=== PATIENT | male | born 1965 | race Caucasian/White ===

== ENCOUNTER 2023-06-02 09:06 | Outpatient (REF) | payer BC, SELFPAY | END 2023-06-02 09:07 | disposition home or self-care (01) | LOC: HO.BBR 09:06 | PROVIDERS: PCP Internal Medicine; Visit Provider Internal Medicine | DX: D75.1 Secondary polycythemia (principal) | CPT/HCPCS: 85014; 85018; 99195 ==

== ENCOUNTER 2023-06-30 08:58 | Outpatient (REF) | payer BC, SELFPAY | END 2023-06-30 08:59 | disposition home or self-care (01) | LOC: HO.BBR 08:58 | PROVIDERS: PCP Internal Medicine; Visit Provider Internal Medicine | DX: D75.1 Secondary polycythemia (principal) | CPT/HCPCS: 85018; 99195 ==

== ENCOUNTER 2023-09-07 14:01 | Outpatient (REF) | payer BC, SELFPAY | END 2023-09-07 14:02 | disposition home or self-care (01) | LOC: HO.BBR 14:01 | PROVIDERS: PCP Internal Medicine; Visit Provider Internal Medicine | DX: D75.1 Secondary polycythemia (principal) | CPT/HCPCS: 85018; 99195 ==

== ENCOUNTER 2023-10-05 08:01 | Outpatient (REF) | payer BC, SELFPAY | END 2023-10-05 08:02 | disposition home or self-care (01) | LOC: HO.BBR 08:01 | PROVIDERS: PCP Internal Medicine; Visit Provider Internal Medicine | DX: D75.1 Secondary polycythemia (principal) | CPT/HCPCS: 85018; 99195 ==

== ENCOUNTER 2023-11-09 08:57 | Outpatient (REF) | payer BC, SELFPAY | END 2023-11-09 08:58 | disposition home or self-care (01) | LOC: HO.BBR 08:57 | PROVIDERS: Visit Provider Internal Medicine | DX: D75.1 Secondary polycythemia (principal) | CPT/HCPCS: 85018; 99195 ==

== ENCOUNTER 2023-12-08 08:08 | Outpatient (REF) | payer BC, SELFPAY | END 2023-12-08 08:09 | disposition home or self-care (01) | LOC: HO.BBR 08:08 | PROVIDERS: PCP Internal Medicine; Visit Provider Internal Medicine | DX: D75.1 Secondary polycythemia (principal) | CPT/HCPCS: 85014; 85018; 99195 ==

== ENCOUNTER 2024-01-04 08:04 | Outpatient (REF) | payer BC, SELFPAY | END 2024-01-04 08:05 | disposition home or self-care (01) | LOC: HO.BBR 08:04 | PROVIDERS: PCP Internal Medicine; Visit Provider Internal Medicine | DX: D75.1 Secondary polycythemia (principal) | CPT/HCPCS: 85018 ==

== ENCOUNTER 2024-02-07 08:04 | Outpatient (REF) | payer BC, SELFPAY | END 2024-02-07 08:05 | disposition home or self-care (01) | LOC: HO.BBR 08:04 | PROVIDERS: PCP Internal Medicine; Visit Provider Internal Medicine | DX: D75.1 Secondary polycythemia (principal) | CPT/HCPCS: 85018 ==

== ENCOUNTER 2024-03-05 07:55 | Outpatient (REF) | payer BC, SELFPAY | END 2024-03-05 07:56 | disposition home or self-care (01) | LOC: HO.BBR 07:55 | PROVIDERS: PCP Internal Medicine; Visit Provider Internal Medicine | DX: D75.1 Secondary polycythemia (principal) | CPT/HCPCS: 85014; 85018; 99195 ==

== ENCOUNTER 2024-04-16 08:40 | Outpatient (REF) | payer BC, SELFPAY | END 2024-04-16 08:41 | disposition home or self-care (01) | LOC: HO.BBR 08:40 | PROVIDERS: PCP Internal Medicine; Visit Provider Internal Medicine | DX: D75.1 Secondary polycythemia (principal) | CPT/HCPCS: 85018; 99195 ==

== ENCOUNTER 2024-05-22 07:59 | Outpatient (REF) | payer BC, SELFPAY | END 2024-05-22 08:00 | disposition home or self-care (01) | LOC: HO.BBR 07:59 | PROVIDERS: PCP Internal Medicine; Visit Provider Internal Medicine | DX: D75.1 Secondary polycythemia (principal) | CPT/HCPCS: 85014; 85018; 99195 ==

== ENCOUNTER 2024-08-13 08:13 | Outpatient (REF) | payer BC, SELFPAY ==
--- OUTSIDE RECORDS SUMMARY | 2024-08-13 12:36 | XMS_ITS | Clinical Summary ---
Author Organization [email or web address] Address [address] [place] [address] Care Team Providers Care Business Systems Administrator Name Role Phone Natanael Mcfarland MD Primary Care Provider [phone] Allergies Active Allergy Reactions Criticality Noted Date Comments Other 09/08/2017 Medications Medication Sig Dispensed Refills Start Date End Date Status allopurinoL (ZYLOPRIM) 300 mg tablet Take 1 tablet (300 mg total) by mouth daily. Activ e amLODIPine-benazep ril (LOTREL) 5-40 mg per capsule TAKE 1 CAPSULE BY MOUTH EVERY DAY 04/26/2017 Active apixaban (ELIQUIS) 5 mg tablet Take by mouth every 12 (twelve) hours. Active aspirin 81 mg EC tablet Take 1 tablet (81 mg total) by mouth daily. Activ e atorvastatin (LIPITOR) 40 mg tablet Take 1 tablet (40 mg total) by mouth daily. Activ e buPROPion XL (WELLBUTRIN XL) 300 mg 24 hr tablet Take 1 tablet (300 mg total) by mouth daily. 12/04/2017 Activ e carvediloL (COREG) 25 mg tablet Take 1 tablet (25 mg total) by mouth 2 (two) times a day with meals. Active cyanocobalamin, vitamin B-12, 1,000 mcg capsule Take 1 capsule by mouth. Active furosemide (LASIX) 20 mg tablet 06/18/2017 Active LORazepam (ATIVAN) 0.5 mg tablet Take 1 tablet (0.5 mg total) by mouth every 8 (eight) hours as needed. Active metFORMIN (GLUCOPHAGE) 500 mg tablet Take 2 tablets (1,000 mg total) by mouth daily. Active semaglutide (Ozempic) 1 mg/dose (2 mg/1.5 mL) injection pen Semaglutide (OZEMPIC, 1 MG/DOSE, SC): Inject under the skin. - Subcutaneous Active tamsulosin (FLOMAX) 0.4 mg 24 hr capsule Take 1 capsule (0.4 mg total) by mouth daily. Activ e testosterone cypionate (DEPO-TESTOTERONE) 200 mg/mL injection INJECT 1.2ML INTRAMUSCULARLY EVERY 2 WEEKS DIRECTED 02/10/2017 Active Active Problems Problem Noted Date Diagnosed Date Depression 09/12/2017 Diabetes mellitus type 2, uncomplicated 09/12/19 GERD (gastroesophageal reflux disease) 8 Gout 09/12/2017 Hyperlipidemia 09/12/2017 Hypertension 09/12/2017 Nephrolithiasis 09/12/2017 DIANE (obstructive sleep apnea) 09/08/2017 Overview (09/08/2023): Overview: CPAP Polycythemia, 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 Encounters Date Type Department Care Team Description 06/27/2024 Telephone [facility] Hematology Oncology [address] [place] [address] Oswaldo Vargas MD from Last 3 Months Immunizations Name Administration Dates Next Due Pfizer SARS-CoV-2 COVID-19, mRNA, LNP-S, preservative free 09/27/2020,09/06/2020 Surgical History Surgery Date Site/Laterality Comments OTHER SURGICAL HISTORY 05/2009 Right PROCEDURE: ND LAPAROSCOPY SURGICAL ORCHIECTOMY; COMMENT: testicular cancer BACK SURGERY 04/2001 PROCEDURE: HISTORICAL BACK SURGERY; COMMENT: C4-C5 discectomy & fusion LITHOTRIPSY 04/2000 PROCEDURE: HISTORICAL LITHOTRIPSY; COMMENT: kidney stones Medical History Medical History Date Comments Morbid obesity with BMI of 4 5.0-49.9, adult (CMS/HCC) 09/08/2017 DX:Morbid obesity with BMI o f 45.0-49.9, adult (HCC) History of testicular cancer 09/12/2017 DX: History of testicular cancer Hypertension 09/12/2017 DX:Hypertension Hyperlipidemia 09/12/2017 DX:Hyperlipidemi a GERD (gastroesophageal reflux disease) 09/12/2017 DX:GERD (gastroesophageal reflux disease) Gout 09/12/2017 DX:Gout Diabetes mellitus type 2, un complicated (CMS/HCC) 09/12/2017 DX:Diabetes mellitus type 2, uncomplicated (HCC) Depression 09/12/2017 DX:Depression Nephrolithiasis 09/12/2017 DX:Nephrolithias is Family History Medical History Relation Name Comments COPD Mother CVA Relation Name Status Comments Mother Social History Tobacco Use Types Packs/Day Years Used Date Smoking Tobacco: Never Smokeless Tobacco: Never Alcohol Use Standard Drinks/Week Comments Yes 0 (1 standard drink = 0.6 oz pur e alcohol) Sex and Gender Information Value Date Recorded Sex Assigned at Not on file Gender Identity Not on file Sexual Orientation Straight 08/20/2022 6: 55 PM EST Obstetrics History Last Filed Vital Signs Vital Sign Reading Time Taken Comments Blood Pressure 118/74 02/28/2024 9:24 AM EDT Pulse 75 01/16/2024 7:49 AM EDT Temperature - - Respiratory Rate - - Oxygen Saturation - - Inhaled Oxygen Concentration - - Weight 121 kg (266 lb) 02/28/2024 9:24 AM EDT Height 182.9 cm (6') 02/28/2024 9:24 AM EDT Body Mass Index 36.08 02/28/2024 9:24 AM EDT Plan of Treatment Upcoming Encounters Date Type Department Care Team (Late st Contact Info) Description 11/27/2024 9:00 AM EDT Office Visit [facility] Hematology Oncology [address] [place] [address] Oswaldo Vargas MD [address] [place] [id number] Health Maintenance Due Date Last Done Comments Diabetes: Annual GFR (Glomerular Filtration Rate) 1965 Pneumococcal Vaccine: Pediatrics (0 to 5 Years) and At-Risk Patients (6 to 64 Years) (1 of 2 - PCV) 10/31/1971 Diabetes: Annual Foot Exam 10/31/1975 Diabetes: Annual Retina Eye Exam 10/31/1975 DTaP,Tdap,and Td Vaccines (1 - Tdap) 1984 Hepatitis B Vaccines (1 of 3 - 19+ 3-dose series) 1984 Zoster Vaccines (1 of 2) 10/31/2015 Cholesterol Screening (Lipid Panel) 06/20/2022 Colorectal Cancer Screening: Colonoscopy 06/20/2022 Depression Screening 06/20/2022 HIV Screening 06/20/2022 Hepatitis C Screening 06/20/2022 Social Influencers of Health Screening 06/20/2022 Diabetes: Annual Urine Albumin-Creatinine Ratio (uACR) 06/29/2022 Diabetes: Blood Sugar Contro l Test (HGBA1C) 06/29/2022 Hypertension/CHF/CAD Annual BMP Blood Test 06/29/2022 COVID-19 Vaccine (3 - 2023-2 5 season) 2024 09/27/2020, 09/06/2020 Influenza Vaccine (#1) 2024 HIB Vaccines Aged Out No longer eligi ble based on patient's age to complete this topic HPV Vaccines Aged Out No longer eligi ble based on patient's age to complete this topic Hepatitis A Vaccines Aged Out No long er eligible based on patient's age to complete this topic IPV Vaccines Aged Out No longer eligi ble based on patient's age to complete this topic MMR Vaccines Aged Out No longer eligi ble based on patient's age to complete this topic Meningococcal ACWY Vaccine Aged Out N o longer eligible based on patient's age to complete this topic RSV Immunization Patients Under 20 months Aged Out No longer eligible b ased on patient's age to complete this topic Varicella Vaccines Aged Out No longer eligible based on patient's age to complete this topic Care Teams Business Systems Administrator Relationship Specialty Start Date End Date Natanael Mcfarland MD PCP - General Internal Medicine 09/08/17
--- OUTSIDE RECORDS SUMMARY | 2024-08-13 12:36 | XMS_ITS | Referral Summary ---
Author Organization [facility] Address [address] [place] [address] Care Team Providers Care Apron Operator Name Role Phone Natanael Mcfarland Primary Care Provider [phone] Medications Hospital, Clinic, or Other Facility Administered Medication Ordered Dose Route Frequency Start Date End Date Status acetaminophen (TYLENOL) tablet 650 mg 650 mg oral Once 04/02/2021 Active diphenhydrAMINE (BENADRYL) capsule 25 mg 25 mg oral Once 04/02/2021 Active Social History Tobacco Use Types Packs/Day Years Used Date Smoking Tobacco: Never Assessed Sex and Gender Information Value Date Recorded Sex Assigned at Not on file Legal Sex Male 8:41 AM EDT Gender Identity Not on file Sexual Orientation Not on file Last Filed Vital Signs Vital Sign Reading Time Taken Comments Blood Pressure 117/65 04/02/2021 9:51 AM EDT Pulse 85 04/02/2021 9:51 AM EDT Temperature - - Respiratory Rate 17 04/02/2021 9:51 AM EDT Oxygen Saturation 95% 04/02/2021 9:51 AM EDT Inhaled Oxygen Concentration - - Weight 149.7 kg (330 lb) 04/02/2021 9:08 AM EDT Height - - Body Mass Index - - Plan of Treatment Not on [place] [id number] BCBS OUT OF STATE HMO Care Teams Apron Operator Relationship Specialty Start Date End Date Natanael Mcfarland PCP - General Internal Medicine 03/31/21
--- OUTSIDE RECORDS SUMMARY | 2024-08-13 12:36 | XMS_ITS | Clinical Summary ---
Author Organization [facility] Address [address] [place] [address] Care Team Providers Care Supervisor Remelt Name Role Phone Natanael Mcfarland Primary Care Provider [phone] Medications Hospital, Clinic, or Other Facility Administered [...] Mass Index - - Plan of Treatment Health Maintenance Due Date Last Done Comments Cologuard 1965 Colon Cancer Screening 1965 Colonoscopy 1965 FOBT / Fit Test 1965 HIV Screening 1965 Sigmoidoscopy 1965 Hepatitis B Vaccines (1 of 3 - 19+ 3-dose series) 1984 DTaP,Tdap,and Td Vaccines (1 - Tdap) 10/31/1987 Zoster Vaccines (1 of 2) 10/31/2015 COVID-19 Vaccine (3 - 2023-2 5 season) 2024 09/27/2020, 09/06/2020 Influenza Vaccine (#1) 2024 Alcohol/Substance Use Screening 07/18/2024 RSV Vaccine (60+ years old a nd patients) (1 - 1-dose 75+ series) 2040 Pneumococcal Vaccine: Pediatric (0-5 Years) and At-Risk Patients (6-64 Years) Aged Out No longer eligible based on patient's age to complete this topic Insurance [facility] OUT OF STATE HMO Care Teams Supervisor Remelt Relationship Specialty Start Date End Date Natanael Mcfarland PCP - General Internal Medicine 03/31/21
--- OUTSIDE RECORDS SUMMARY | 2024-08-13 12:36 | XMS_ITS | Clinical Summary ---
Author Organization [facility] Address [address] [place] [address] Care Team Providers Care Title Department Manager Name Role Phone Natanael Mcfarland MD Primary Care Provider [phone] Allergies Active Allergy Reactions Criticality Noted Date Comments Other 09/08/2017 Medications Medication Sig Dispensed Refills Start Date End Date Status carvedilol (COREG) 25 MG tablet Take 1 tablet (25 mg total) by mouth 2 (two) times a day with meals. 0 Active aspirin 81 MG tablet Take 1 tablet (81 mg total) by mouth daily. 0 Activ e allopurinol (ZYLOPRIM) 300 MG tablet Take 1 tablet (300 mg total) by mouth daily. 0 Activ e testosterone cypionate (DEPO-TESTOSTERONE CYPIONATE) injection 200 mg/mL INJECT 1.2ML INTRAMUSCULARLY EVERY 2 WEEKS DIRECTED 0 02/10/2017 Active amlodipine-benazep ril (LOTREL) 5-40 MG per capsule TAKE 1 CAPSULE BY MOUTH EVERY DAY 11 04/26/2017 Active furosemide (LASIX) 20 MG tablet 0 06/18/2017 Active metFORMIN (GLUCOPHAGE) tablet 500 mg Take 2 tablets (1,000 mg total) by mouth daily. 0 Active Cyanocobalamin (B-12) 1000 MCG CAPS Take 1 capsule by mouth. 0 Active buPROPion (WELLBUTRIN XL) 300 MG 24 hr tablet Take 1 tablet (300 mg total) by mouth daily. 5 12/04/2017 Activ e LORazepam (ATIVAN) 0.5 MG tablet Take 1 tablet (0.5 mg total) by mouth every 8 (eight) hours as needed. 0 Active atorvastatin (LIPITOR) tablet 40 mg Take 1 tablet (40 mg total) by mouth daily. 0 Activ e apixaban (ELIQUIS) 5 MG TABS tablet Take by mouth every 12 (twelve) hours. 0 Active tamsulosin (FLOMAX) 0.4 MG CAPS Take 1 capsule (0.4 mg total) by mouth daily. 0 Activ e Semaglutide (OZEMPIC, 1 MG/DOSE, SC) Inject under the skin. 0 Active meloxicam (MOBIC) 15 MG tablet Take 1 tablet (15 mg total) by mouth daily. 0 Activ e Active Problems Problem Noted Date Diagnosed Date Depression 09/12/2017 Diabetes mellitus type 2, uncomplicated 09/12/19 18 GERD (gastroesophageal reflux disease) 8 Gout 09/12/2017 History of testicular cancer 09/12/2017 Hyperlipidemia 09/12/2017 Hypertension 09/12/2017 Nephrolithiasis 09/12/2017 Morbid obesity with BMI of 45.0-49.9, adult 08/19 DIANE (obstructive sleep apnea) 09/08/2017 Overview: Overview: CPAP Polycythemia, 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 Family History Medical History Relation Name Comments Cancer Brother Cancer Mother skin Relation Name Status Comments Brother Mother Social History Tobacco Use Types Packs/Day Years Used Date Smoking Tobacco: Never Smokeless Tobacco: Never Alcohol Use Standard Drinks/Week Comments Yes 0 (1 standard drink = 0.6 oz pur e alcohol) social Sex and Gender Information Value Date Recorded Sex Assigned at Not on file Gender Identity Not on file Sexual Orientation Not on file Job Start Date Occupation Industry Not on file Not on file Not on file Last Filed Vital Signs Vital Sign Reading Time Taken Comments Blood Pressure 130/64 11/28/2023 9:09 AM EDT Pulse 75 11/28/2023 9:09 AM EDT Temperature 36.6 ??C (97.9 ??F) 11/28/2023 9:09 AM ED T Respiratory Rate - - Oxygen Saturation 98% 11/28/2023 9:09 AM EDT Inhaled Oxygen Concentration - - Weight 119.3 kg (263 lb) 11/28/2023 9:09 AM EDT Height 180.3 cm (5' 11 ) 11/28/2023 9:09 AM EDT Body Mass Index 36.68 11/28/2023 9:09 AM EDT Plan of Treatment Health Maintenance Due Date Last Done Comments Hepatitis B Vaccines (1 of 3 - 3-dose series) 1965 Hepatitis C Screening 1965 Pneumococcal Vaccine (1 of 2 - PCV) 10/31/1971 Depression Screening 1977 Preventative Health Evaluation 10/31/1983 DTap / Tdap / Td (1 - Tdap) 1984 Colon Cancer Screening (Colonoscopy) 2010 Shingrix-Zoster Vaccine (1 o f 2) 10/31/2015 COVID-19 Vaccine (3 - 2023-2 5 season) 2024 09/27/2020, 09/06/2020 Influenza Vaccine (#1) 2024 RSV Ped < 20 months Aged Out No longe r eligible based on patient's age to complete this topic Care Teams Title Department Manager Relationship Specialty Start Date End Date Natanael Mcfarland MD PCP - General Internal Medicine 01/31/17
--- OUTSIDE RECORDS SUMMARY | 2024-08-13 12:36 | XMS_ITS | Continuity of Care Document ---
Author Organization [facility] Address [address] [place] [address] Insurance Providers Payer Plan Claims Address Claims Phone Policy Number Group Number Relation Employer Guarantor Name Guarantor Guarantor Address Guarantor Phone [employer] [address], [place] [id number] Self Jack Mendez 1965 [address] [place] [address] BCBS BCBS [address], [place] [address] tel:[phone] Self Jack Mendez 1965 [address], [place] [address] BCBSMA BCBSM A [address], [place] [address] tel:[phone] Self Jack Mendez 1965 [address], [place] [address] Problems Unknown Problems Results Test Value / Unit Interpretation Reference Ran Hemoglobin A1c[[id number]]?Collected: 04/20/2024 03:13 PM?Specimen Received: 04/20/2024 05:00 AM?Source: [facility] Hemoglobin A1c [[id number]] TNP % Please refer to the followin g specimen for additional lab results.[id number] . Prediabetes: 5.7 - 6.4 Diabetes: >6.4 Glycemic control for adults with diabetes: 7.0 Request Problem[[id number]]?Collected: 04/20/2024 03:13 PM?Specimen Received: 04/20/2024 05:00 AM?Source: [facility] Request Problem [[id number]] TNP Please refer to the followin g specimen for additional lab results. TEST: [id number] Hemoglobin [id number] Comp. Metabolic Panel (14)[[id number]]?Collected: 04/20/2024 03:15 PM?Specimen Received: 04/20/2024 05:00 AM?Source: [facility] Glucose [[id number]] 104 mg/dL H 70-99 mg/dL BUN [245914] 16 mg/dL 6-24 mg/dL Creatinine [987190] 1.08 mg/dL 0.76-1.2 7 mg/dL eGFR [997136] 80 mL/min/1.73 >59 mL/min/1 .73 BUN/Creatinine Ratio [644804] 15 9-20 Sodium [414563] 144 mmol/L 134-144 mmol /L Potassium [628177] 4.1 mmol/L 3.5-5.2 m mol/L Chloride [420473] 104 mmol/L 96-106 mmo l/L Carbon Dioxide, Total [617346] 27 mmol/L 20-29 mmol/L Calcium [210455] 9.3 mg/dL 8.7-10.2 mg /dL Protein, Total [640789] 7.0 g/dL 6.0- 8.5 g/dL Albumin [269858] 4.3 g/dL 3.8-4.9 g/d L Globulin, Total [095430] 2.7 g/dL 1.5 -4.5 g/dL Bilirubin, Total [680362] 1.1 mg/dL 0. 0-1.2 mg/dL Alkaline Phosphatase [848289] 63 IU/L 44-121 IU/L AST (SGOT) [455040] 24 IU/L 0-40 IU/ L ALT (SGPT) [902097] 26 IU/L 0-44 IU/ L Lipid Panel[324283]?Collected: 04/20/2024 03:15 PM?Specimen Received: 04/20/2024 05:00 AM?Source: [facility] Cholesterol, Total [955572] 129 mg/dL 100-199 mg/dL Triglycerides [795840] 106 mg/dL 0-149 mg/dL HDL Cholesterol [673338] 54 mg/dL >39 mg/dL VLDL Cholesterol Emanuel [346310] 19 mg/dL 5-40 mg/dL LDL Chol Calc (NIH) [083356] 56 mg/dL 0-99 mg/dL Albumin/Creatinine Ratio,Uri ne[693249]?Collected: 04/20/2024 03:15 PM?Specimen Received: 04/20/2024 05:00 AM?Source: [facility] Creatinine, Urine [670049] 238.1 mg/dL N ot Estab. mg/dL Albumin, Urine [192365] 25.2 ug/mL Not Estab. ug/mL Alb/Creat Ratio [204029] 11 mg/g creat 0- 29 mg/g creat Normal: 0 - 29 Moderately in creased: 30 - 300 Severely increased: >300 Hemoglobin A1c[321293]?Collected: 04/20/2024 03:15 PM?Specimen Received: 04/20/2024 05:00 AM?Source: [facility] Hemoglobin A1c [405993] 5.9 % H 4.8- 5.6 % . Prediabetes: 5.7 - 6.4 Haydee betes: >6.4 Glycemic control for adults with diabetes: 7.0 Comp. Metabolic Panel (14)[3 89756]?Collected: 05/04/2023 03:40 PM?Specimen Received: 05/04/2023 05:00 AM?Source: [facility] Glucose [323218] 129 mg/dL H 70-99 mg/dL BUN [179587] 17 mg/dL 6-24 mg/dL Creatinine [283004] 1.10 mg/dL 0.76-1.2 7 mg/dL eGFR [478148] 78 mL/min/1.73 >59 mL/min/1 .73 BUN/Creatinine Ratio [843259] 15 9-20 Sodium [466827] 142 mmol/L 134-144 mmol /L Potassium [067573] 4.4 mmol/L 3.5-5.2 m mol/L Chloride [201554] 102 mmol/L 96-106 mmo l/L Carbon Dioxide, Total [825676] 26 mmol/L 20-29 mmol/L Calcium [114307] 9.7 mg/dL 8.7-10.2 mg /dL Protein, Total [970740] 7.0 g/dL 6.0- 8.5 g/dL Albumin [252098] 4.4 g/dL 3.8-4.9 g/d L Globulin, Total [493067] 2.6 g/dL 1.5 -4.5 g/dL A/G Ratio [579825] 1.7 1.2-2.2 Bilirubin, Total [583981] 1.4 mg/dL H 0. 0-1.2 mg/dL Alkaline Phosphatase [589260] 69 IU/L 44-121 IU/L AST (SGOT) [586377] 17 IU/L 0-40 IU/ L ALT (SGPT) [021179] 21 IU/L 0-44 IU/ L Lipid Panel[180464]?Collected: 05/04/2023 03:40 PM?Specimen Received: 05/04/2023 05:00 AM?Source: [facility] Cholesterol, Total [402870] 110 mg/dL 100-199 mg/dL Triglycerides [512189] 85 mg/dL 0-149 mg/dL HDL Cholesterol [415417] 44 mg/dL >39 mg/dL VLDL Cholesterol Emanuel [950422] 17 mg/dL 5-40 mg/dL LDL Chol Calc ([facility]) [487104] 49 mg/dL 0-99 mg/dL Albumin/Creatinine Ratio,Uri ne[213344]?Collected: 05/04/2023 03:40 PM?Specimen Received: 05/04/2023 05:00 AM?Source: [facility] Creatinine, Urine [590428] 101.2 mg/dL N ot Estab. mg/dL Albumin, Urine [118635] 14.4 ug/mL Not Estab. ug/mL Alb/Creat Ratio [026888] 14 mg/g creat 0- 29 mg/g creat Normal: 0 - 29 Moderately in creased: 30 - 300 Severely increased: >300 Hemoglobin A1c[659797]?Collected: 05/04/2023 03:40 PM?Specimen Received: 05/04/2023 05:00 AM?Source: [facility] Hemoglobin A1c [372982] 5.8 % H 4.8- 5.6 % . Prediabetes: 5.7 - 6.4 Haydee betes: >6.4 Glycemic control for adults with diabetes: 7.0 Comp. Metabolic Panel (14)[3 39962]?Collected: 10/28/2022 03:21 PM?Specimen Received: 10/28/2022 05:00 AM?Source: [facility] Glucose [328609] 154 mg/dL H 70-99 mg/dL BUN [711653] 13 mg/dL 6-24 mg/dL Creatinine [071971] 1.08 mg/dL 0.76-1.2 7 mg/dL eGFR [223654] 81 mL/min/1.73 >59 mL/min/1 .73 BUN/Creatinine Ratio [974913] 12 9-20 Sodium [738370] 140 mmol/L 134-144 mmol /L Potassium [892503] 3.9 mmol/L 3.5-5.2 m mol/L Chloride [263478] 99 mmol/L 96-106 mmo l/L Carbon Dioxide, Total [536297] 27 mmol/L 20-29 mmol/L Calcium [348406] 9.1 mg/dL 8.7-10.2 mg /dL Protein, Total [263124] 6.6 g/dL 6.0- 8.5 g/dL Albumin [512201] 4.2 g/dL 3.8-4.9 g/d L Globulin, Total [736374] 2.4 g/dL 1.5 -4.5 g/dL A/G Ratio [185475] 1.8 1.2-2.2 Bilirubin, Total [083371] 1.7 mg/dL H 0. 0-1.2 mg/dL Alkaline Phosphatase [520578] 74 IU/L 44-121 IU/L AST (SGOT) [462623] 13 IU/L 0-40 IU/ L ALT (SGPT) [607261] 17 IU/L 0-44 IU/ L Lipid Panel[[id number]]?Collected: 10/28/2022 03:21 PM?Specimen Received: 10/28/2022 05:00 AM?Source: [facility] Cholesterol, Total [074327] 115 mg/dL 100-199 mg/dL Triglycerides [956730] 202 mg/dL H 0-149 mg/dL HDL Cholesterol [716897] 35 mg/dL L >39 mg/dL VLDL Cholesterol Emanuel [462792] 33 mg/dL 5-40 mg/dL LDL Chol Calc ([facility]) [052659] 47 mg/dL 0-99 mg/dL Albumin/Creatinine Ratio,Uri ne[586936]?Collected: 10/28/2022 03:21 PM?Specimen Received: 10/28/2022 05:00 AM?Source: [facility] Creatinine, Urine [605762] 109.3 mg/dL N ot Estab. mg/dL Albumin, Urine [573061] 12.4 ug/mL Not Estab. ug/mL Alb/Creat Ratio [843060] 11 mg/g creat 0- 29 mg/g creat Normal: 0 - 29 Moderately i ncreased: 30 - 300 Severely increased: >300 Hemoglobin A1c[018765]?Collected: 10/28/2022 03:21 PM?Specimen Received: 10/28/2022 05:00 AM?Source: [facility] Hemoglobin A1c [982754] 7.4 % H 4.8- 5.6 % . Prediabetes: 5.7 - 6.4 Haydee betes: >6.4 Glycemic control for adults with diabetes: 7.0 Allergies, adverse reactions, alerts No known allergies and adverse reactions Medications No administered medications reported Vital Signs No vital signs reported Social History No smoking Hx information available
== END 2024-08-13 08:14 | disposition home or self-care (01) ==
LOC: HO.BBR 08:13
PROVIDERS: PCP Internal Medicine; Visit Provider Internal Medicine
DX: D75.1 Secondary polycythemia (principal)
CPT/HCPCS: 85018

== ENCOUNTER 2024-09-10 08:00 | Outpatient (REF) | payer BC, SELFPAY ==
--- OUTSIDE RECORDS SUMMARY | 2024-09-10 08:06 | XMS_ITS | Clinical Summary ---
Author Organization [facility] Address [address] [place] [address] Care Team Providers Care Payroll Director Name Role Phone Natanael Mcfarland MD Primary Care Provider + [phone] Allergies Active Allergy Reactions Criticality Noted Date [...] age to complete this topic Care Teams Payroll Director Relationship Specialty Start Date End Date Natanael Mcfarland MD PCP - General Internal Medicine 01/31/17
--- OUTSIDE RECORDS SUMMARY | 2024-09-10 08:06 | XMS_ITS | Clinical Summary ---
Author Organization [facility] Address [address] [place] [address] Care Team Providers Care Supervisor Pyrotechnic Loading Name Role Phone Natanael Mcfarland Primary Care Provider [phone] Medications Hospital, Clinic, or Other Facility Administered [...] DTaP,Tdap,and Td Vaccines (1 - Tdap) 10/31/1987 Pneumococcal Vaccine: 50+ Ye ars (1 of 1 - PCV) 10/31/2015 Zoster Vaccines (1 of 2) 10/31/2015 COVID-19 Vaccine ( season) 2024, 09/06/2020 Influenza Vaccine (#1) 2024 Alcohol/Substance Use Screening 07/18/2024 RSV Vaccine (60+ years old a nd patients) (1 - 1-dose 75+ series) 2040 Insurance [facility] OUT OF STATE HMO Care Teams Supervisor Pyrotechnic Loading Relationship Specialty Start Date End Date Natanael Mcfarland PCP - General Internal Medicine 03/31/21
--- OUTSIDE RECORDS SUMMARY | 2024-09-10 08:06 | XMS_ITS | Referral Summary ---
Author Organization [facility] Address [address] [place] [address] Care Team Providers Care Asbestos Cloth Inspector Name Role Phone Natanael Mcfarland Primary Care Provider [phone] Medications Hospital, Clinic, or Other Facility Administered [...] on [place] [id number] BCBS OUT OF STATE HMO Care Teams Asbestos Cloth Inspector Relationship Specialty Start Date End Date Natanael Mcfarland PCP - General Internal Medicine 03/31/21
--- OUTSIDE RECORDS SUMMARY | 2024-09-10 08:06 | XMS_ITS | Clinical Summary ---
Author Organization [facility] Address [address] [place] [address] Phone Care Team Providers Care Inlayer Silver Name Role Phone Natanael Mcfarland MD Primary Care Provider Allergies Active Allergy Reactions Criticality Noted Date Comments Other 09/08/2017 Medications allopurinoL (ZYLOPRIM) 300 mg tablet Take 1 tablet (300 mg total) by mouth daily. Active amLODIPine-bia azepril (LOTREL) 5-40 mg per capsule TAKE 1 CAPSULE BY MOUTH EVERY DAY 04/26/20 17 Active apixaban (ELIQUIS) 5 mg tablet Take by mouth every 12 (twelve) hours. Active aspirin 81 mg EC tablet Take 1 tablet (81 mg total) by mouth daily. Active atorvastatin (LIPITOR) 40 mg tablet Take 1 tablet (40 mg total) by mouth daily. Active buPROPion XL (WELLBUTRIN XL) 300 mg 24 hr tablet Take 1 tablet (300 mg total) by mouth daily. 12/05/19 18 Active carvediloL (COREG) 25 mg tablet Take 1 tablet (25 mg total) by mouth 2 (two) times a day with meals. Active cyanocobalamin , vitamin B-12, 1,000 mcg capsule Take 1 capsule by mouth. Active furosemide (LASIX) 20 mg tablet 06/18/20 17 Active LORazepam (ATIVAN) 0.5 mg tablet Take [...] capsule (0.4 mg total) by mouth daily. Active testosterone cypionate (DEPO-TESTOTER ONE) 200 mg/mL injection INJECT 1.2ML INTRAMUSCULARLY EVERY 2 WEEKS DIRECTED 02/11/20 17 Active Active Problems Problem Noted Date Diagnosed Date Depression 09/12/2017 Diabetes mellitus type 2, uncomplicated 09/12/19 18 GERD (gastroesophageal reflux disease) 8 Gout 09/12/2017 Hyperlipidemia 09/12/2017 Hypertension 09/12/2017 Nephrolithiasis 09/12/2017 DIANE (obstructive sleep apnea) 09/08/2017 Overview (09/08/2023): Overview: CPAP Polycythemia, 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 Encounters Date Type Department Care Team Description 06/27/2024 Telephone [facility] Hematology Oncology [address] [place] [address] Oswaldo Vargas MD from Last 3 Months Immunizations Name Administration Dates Next Due Pfizer SARS-CoV-2 COVID-19, mRNA, LNP-S, preservative free 09/27/2020,09/06/2020 Surgical History Surgery Date Site/Laterality Comments OTHER SURGICAL HISTORY 05/2009 Right PROCEDURE: LA LAPAROSCOPY SURGICAL ORCHIECTOMY; COMMENT: testicular cancer BACK [...] at Not on file Legal Sex Male 10:57 PM EST Gender Identity Not on file Sexual Orientation [...] Care Team (Late st Contact Info) Description 09/27/2024 9:00 AM EDT Consult Pulmonolgy - [place] [address] [phone] Kelby Kolb MD [address] [address] 11/27/2024 9:00 AM EDT Office Visit [facility] Hematology Oncology [address] [place] [phone] Davion-Oswaldo Alvarez MD [address] [place] [phone] (work) Health Maintenance Due Date Last Done Comments Diabetes: Annual GFR (Glomerular Filtration Rate) 1965 Diabetes: Annual Foot Exam 10/31/1975 Diabetes: Annual Retina Eye Exam 10/31/1975 DTaP,Tdap,and Td Vaccines (1 - Tdap) 1984 Hepatitis B Vaccines (1 of 3 - 19+ 3-dose series) 1984 Pneumococcal Vaccine: 50+ Years (1 of 2 - PCV) 1984 Pneumococcal Vaccine: Pediatrics (0 to 5 Years) and At-Risk Patients (6 to 64 Years) (1 of 2 - PCV) 1984 Zoster Vaccines (1 of 2) 10/31/2015 Cholesterol Screening (Lipid Panel) 06/20/2022 Colorectal Cancer Screening: Colonoscopy 06/20/2022 Depression Screening 06/20/2022 HIV Screening 06/20/2022 Hepatitis C Screening 06/20/2022 Social Influencers of Health Screening 06/20/2022 Diabetes: Annual Urine Albumin-Creatinine Ratio (uACR) 06/29/2022 Diabetes: Blood Sugar Contro l Test (HGBA1C) 06/29/2022 Hypertension/CHF/CAD Annual BMP Blood Test 06/29/2022 COVID-19 Vaccine (2023-2 5 season) 2024 09/27/2020, 09/06/2020 Influenza Vaccine [...] patient's age to complete this topic Meningococcal B Vacine Aged Out No lo nger eligible based on patient's age to complete this topic RSV Immunization Patients Under 20 months Aged Out No longer eligible b ased on patient's age to complete this topic Varicella Vaccines Aged Out No longer eligible based on patient's age to complete this topic Insurance [facility] [place] [id number] [facility] Care Teams Inlayer Silver Relationship Specialty Start Date End Date Natanael Mcfarland MD [address] [place] [address] PCP - General Internal Medicine 09/06/24
--- OUTSIDE RECORDS SUMMARY | 2024-09-10 08:06 | XMS_ITS | Continuity of Care Document ---
Author Organization [employer] Address [address] [place] [id number] Insurance Providers Payer Plan Claims Address Claims Phone Policy Number Group Number Relation Employer Guarantor Name Guarantor Guarantor Address Guarantor Phone [employer] OF [employer]OWE[employer] S [employer] BLUE SHIEL D OF [employer]ATERYNA SHERWIN TTS [address], [place] [id number] Self Jack Mendez 1965 [address] [place] [address] BCBS BCBS [address], [place] [address] tel:[phone] Self Jack Mendez 1965 [address], [place] [address] BCBSMA BCBSM A [address], [place] [address] tel:[phone] Self Jack Mendez 1965 [address], [place] [address] Problems Unknown Problems Results Test Value / Unit Interpretation Reference Ran Hemoglobin A1c[[id number]]?Collected: 04/20/2024 03:13 PM?Specimen Received: 04/20/2024 05:00 AM?Source: [facility] Hemoglobin A1c [169912] TNP % Please refer to the followin g specimen for additional lab results.[id number] . Prediabetes: 5.7 - 6.4 Diabetes: >6.4 Glycemic control for adults with diabetes: 7.0 Request Problem[[id number]]?Collected: 04/20/2024 03:13 PM?Specimen Received: 04/20/2024 05:00 AM?Source: [facility] Request Problem [088401] TNP Please refer to the followin g specimen for additional lab results. TEST: [id number] Hemoglobin [id number] Comp. Metabolic Panel (14)[3 09284]?Collected: 04/20/2024 03:15 PM?Specimen Received: 04/20/2024 05:00 AM?Source: [facility] Glucose [619002] 104 mg/dL H 70-99 mg/dL BUN [762482] 16 mg/dL 6-24 mg/dL Creatinine [668121] 1.08 mg/dL 0.76-1.2 7 mg/dL eGFR [397856] 80 mL/min/1.73 >59 mL/min/1 .73 BUN/Creatinine Ratio [550915] 15 9-20 Sodium [587041] 144 mmol/L 134-144 mmol /L Potassium [211547] 4.1 mmol/L 3.5-5.2 m mol/L Chloride [068311] 104 mmol/L 96-106 mmo l/L Carbon Dioxide, Total [884231] 27 mmol/L 20-29 mmol/L Calcium [857108] 9.3 mg/dL 8.7-10.2 mg /dL Protein, Total [472428] 7.0 g/dL 6.0- 8.5 g/dL Albumin [985056] 4.3 g/dL 3.8-4.9 g/d L Globulin, Total [017280] 2.7 g/dL 1.5 -4.5 g/dL Bilirubin, Total [026636] 1.1 mg/dL 0. 0-1.2 mg/dL Alkaline Phosphatase [053127] 63 IU/L 44-121 IU/L AST (SGOT) [949262] 24 IU/L 0-40 IU/ L ALT (SGPT) [607873] 26 IU/L 0-44 IU/ L Lipid Panel[859029]?Collected: 04/20/2024 03:15 PM?Specimen Received: 04/20/2024 05:00 AM?Source: [facility] Cholesterol, Total [349698] 129 mg/dL 100-199 mg/dL Triglycerides [984803] 106 mg/dL 0-149 mg/dL HDL Cholesterol [206690] 54 mg/dL >39 mg/dL VLDL Cholesterol Emanuel [780995] 19 mg/dL 5-40 mg/dL LDL Chol Calc (NIH) [129615] 56 mg/dL 0-99 mg/dL Albumin/Creatinine Ratio,Uri ne[104345]?Collected: 04/20/2024 03:15 PM?Specimen Received: 04/20/2024 05:00 AM?Source: [facility] Creatinine, Urine [177651] 238.1 mg/dL N ot Estab. mg/dL Albumin, Urine [613293] 25.2 ug/mL Not Estab. ug/mL Alb/Creat Ratio [246105] 11 mg/g creat 0- 29 mg/g creat Normal: 0 - 29 Moderately in creased: 30 - 300 Severely increased: >300 Hemoglobin A1c[558259]?Collected: 04/20/2024 03:15 PM?Specimen Received: 04/20/2024 05:00 AM?Source: [facility] Hemoglobin A1c [370092] 5.9 % H 4.8- 5.6 % . Prediabetes: 5.7 - 6.4 Haydee betes: >6.4 Glycemic control for adults with diabetes: 7.0 Comp. Metabolic Panel (14)[3 51717]?Collected: 05/04/2023 03:40 PM?Specimen Received: 05/04/2023 05:00 AM?Source: [facility] Glucose [818985] 129 mg/dL H 70-99 mg/dL BUN [914209] 17 mg/dL 6-24 mg/dL Creatinine [454167] 1.10 mg/dL 0.76-1.2 7 mg/dL eGFR [045433] 78 mL/min/1.73 >59 mL/min/1 .73 BUN/Creatinine Ratio [100271] 15 9-20 Sodium [202504] 142 mmol/L 134-144 mmol /L Potassium [086628] 4.4 mmol/L 3.5-5.2 m mol/L Chloride [069629] 102 mmol/L 96-106 mmo l/L Carbon Dioxide, Total [847625] 26 mmol/L 20-29 mmol/L Calcium [125929] 9.7 mg/dL 8.7-10.2 mg /dL Protein, Total [152506] 7.0 g/dL 6.0- 8.5 g/dL Albumin [938839] 4.4 g/dL 3.8-4.9 g/d L Globulin, Total [010464] 2.6 g/dL 1.5 -4.5 g/dL A/G Ratio [349792] 1.7 1.2-2.2 Bilirubin, Total [621346] 1.4 mg/dL H 0. 0-1.2 mg/dL Alkaline Phosphatase [040498] 69 IU/L 44-121 IU/L AST (SGOT) [450544] 17 IU/L 0-40 IU/ L ALT (SGPT) [501378] 21 IU/L 0-44 IU/ L Lipid Panel[009964]?Collected: 05/04/2023 03:40 PM?Specimen Received: 05/04/2023 05:00 AM?Source: [facility] Cholesterol, Total [549967] 110 mg/dL 100-199 mg/dL Triglycerides [917821] 85 mg/dL 0-149 mg/dL HDL Cholesterol [308386] 44 mg/dL >39 mg/dL VLDL Cholesterol Emanuel [410126] 17 mg/dL 5-40 mg/dL LDL Chol Calc ([facility]) [743574] 49 mg/dL 0-99 mg/dL Albumin/Creatinine Ratio,Uri ne[270604]?Collected: 05/04/2023 03:40 PM?Specimen Received: 05/04/2023 05:00 AM?Source: [facility] Creatinine, Urine [462072] 101.2 mg/dL N ot Estab. mg/dL Albumin, Urine [148035] 14.4 ug/mL Not Estab. ug/mL Alb/Creat Ratio [393098] 14 mg/g creat 0- 29 mg/g creat Normal: 0 - 29 Moderately in creased: 30 - 300 Severely increased: >300 Hemoglobin A1c[043718]?Collected: 05/04/2023 03:40 PM?Specimen Received: 05/04/2023 05:00 AM?Source: [facility] Hemoglobin A1c [979367] 5.8 % H 4.8- 5.6 % . Prediabetes: 5.7 - 6.4 Haydee betes: >6.4 Glycemic control for adults with diabetes: 7.0 Comp. Metabolic Panel (14)[3 77805]?Collected: 10/28/2022 03:21 PM?Specimen Received: 10/28/2022 05:00 AM?Source: [facility] Glucose [666975] 154 mg/dL H 70-99 mg/dL BUN [804394] 13 mg/dL 6-24 mg/dL Creatinine [580044] 1.08 mg/dL 0.76-1.2 7 mg/dL eGFR [183497] 81 mL/min/1.73 >59 mL/min/1 .73 BUN/Creatinine Ratio [421969] 12 9-20 Sodium [639461] 140 mmol/L 134-144 mmol /L Potassium [455904] 3.9 mmol/L 3.5-5.2 m mol/L Chloride [033439] 99 mmol/L 96-106 mmo l/L Carbon Dioxide, Total [215797] 27 mmol/L 20-29 mmol/L Calcium [311259] 9.1 mg/dL 8.7-10.2 mg /dL Protein, Total [440693] 6.6 g/dL 6.0- 8.5 g/dL Albumin [745270] 4.2 g/dL 3.8-4.9 g/d L Globulin, Total [830661] 2.4 g/dL 1.5 -4.5 g/dL A/G Ratio [614359] 1.8 1.2-2.2 Bilirubin, Total [972997] 1.7 mg/dL H 0. 0-1.2 mg/dL Alkaline Phosphatase [991953] 74 IU/L 44-121 IU/L AST (SGOT) [845005] 13 IU/L 0-40 IU/ L ALT (SGPT) [457357] 17 IU/L 0-44 IU/ L Lipid Panel[429095]?Collected: 10/28/2022 03:21 PM?Specimen Received: 10/28/2022 05:00 AM?Source: [facility] Cholesterol, Total [554203] 115 mg/dL 100-199 mg/dL Triglycerides [212986] 202 mg/dL H 0-149 mg/dL HDL Cholesterol [187184] 35 mg/dL L >39 mg/dL VLDL Cholesterol Emanuel [226718] 33 mg/dL 5-40 mg/dL LDL Chol Calc ([facility]) [673675] 47 mg/dL 0-99 mg/dL Albumin/Creatinine Ratio,Uri ne[871959]?Collected: 10/28/2022 03:21 PM?Specimen Received: 10/28/2022 05:00 AM?Source: [facility] Creatinine, Urine [287627] 109.3 mg/dL N ot Estab. mg/dL Albumin, Urine [481377] 12.4 ug/mL Not Estab. ug/mL Alb/Creat Ratio [713540] 11 mg/g creat 0- 29 mg/g creat Normal: 0 - 29 Moderately i ncreased: 30 - 300 Severely increased: >300 Hemoglobin A1c[528109]?Collected: 10/28/2022 03:21 PM?Specimen Received: 10/28/2022 05:00 AM?Source: [facility] Hemoglobin A1c [503154] 7.4 % H 4.8- 5.6 % . Prediabetes: 5.7 - 6.4 Haydee betes: >6.4 Glycemic control for adults with diabetes: 7.0 Allergies, adverse reactions, alerts No known allergies and adverse reactions Medications No administered medications reported Vital Signs No vital signs reported Social History No smoking Hx information available
== END 2024-09-10 08:01 | disposition home or self-care (01) ==
LOC: HO.BBR 08:00
PROVIDERS: PCP Internal Medicine; Visit Provider Internal Medicine
DX: D75.1 Secondary polycythemia (principal)
CPT/HCPCS: 85014; 85018; 99195

== ENCOUNTER 2025-03-26 13:52 | Outpatient (REF) | payer BC, SELFPAY ==
--- OUTSIDE RECORDS SUMMARY | 2025-03-26 16:32 | XMS_ITS | Clinical Summary ---
Author Organization [facility] Address [address] [place] [address] Care Team Providers Care Lens Generator Name Role Phone Natanael Mcfarland MD Primary Care Provider [phone] Allergies Active Allergy Reactions Criticality Noted Date [...] 75 11/28/2023 9:09 AM EDT Temperature 36.6 C (97.9 F) 11/28/2023 9:09 AM EDT Respiratory Rate - - Oxygen Saturation 98% [...] f 2) 10/31/2015 COVID-19 Vaccine (3 - 2024-2 6 season) 2025 09/27/2020, 09/06/2020 Influenza Vaccine (#1) 2025 RSV Ped < 20 months Aged Out No longe r eligible based on patient's age to complete this topic Care Teams Lens Generator Relationship Specialty Start Date End Date Natanael Mcfarland MD PCP - General Internal Medicine 01/31/17
--- OUTSIDE RECORDS SUMMARY | 2025-03-26 16:32 | XMS_ITS | Continuity of Care Document ---
Author Organization [email or web address] Address [address] [facility] [address] [place] [address] Insurance Providers Payer Plan Claims Address Claims Phone Policy Number Group Number Relation Employer Guarantor Name Guarantor Guarantor Address Guarantor Phone [employer]AREN [employer]ERRY S [employer] SHIEL D OF [employer] COURTNEY TTS [address], [place] [id number] BCBS BCBS [address], [place] [address] tel:[phone] [id number] BCBSMA BCBSM A [address], [place] [address] tel:[phone] Problems Unknown Problems Results Test Result Date/Time Value / Unit Interp. Refere nce Range Hemoglobin A1c[[id number]] Collected: 04/20/2024 03:13 PM Specimen Received: 04/20/2024 05:00 AM Source: [facility] Hemoglobin A1c [246500] 04/24/2024 03:19 PM TNP % Please refer to the followin g specimen for additional lab results.[phone] . Prediabetes: 5.7 - 6.4 Diabetes: >6.4 Glycemic control for adults with diabetes: 7.0 Request Problem[703235] Collected: 04/20/2024 03:13 PM Specimen Received: 04/20/2024 05:00 AM Source: [facility] Request Problem [135320] 04/24/2024 03:19 PM TNP Please refer to the followin g specimen for additional lab results. TEST: [id number] Hemoglobin [id number] Comp. Metabolic Panel (14)[3 57041] Collected: 04/20/2024 03:15 PM Specimen Received: 04/20/2024 05:00 AM Source: [facility] Glucose [021961] 04/21/2024 05:24 AM 104 mg/dL H 70-99 mg/dL BUN [916735] 04/21/2024 05:24 AM 16 mg/dL 6-2 4 mg/dL Creatinine [966680] 04/21/2024 05:24 AM 1.08 mg/dL 0.76-1.27 mg/dL eGFR [373487] 04/21/2024 05:24 AM 80 mL/min/1.73 >59 mL/min/1.73 BUN/Creatinine Ratio [801042] 04/21/2024 05:24 AM 15 9-20 Sodium [585728] 04/21/2024 05:21 AM 144 mmol/L 134-144 mmol/L Potassium [361694] 04/21/2024 05:24 AM 4.1 mmol/L 3.5-5.2 mmol/L Chloride [613347] 04/21/2024 05:21 AM 104 mmol/L 96-106 mmol/L Carbon Dioxide, Total [193151] 04/21/2024 05:24 AM 27 mmol/L 20-29 mmol/L Calcium [677020] 04/21/2024 05:24 AM 9.3 mg/dL 8.7-10.2 mg/dL Protein, Total [454275] 04/21/2024 05:24 AM 7.0 g/dL 6.0-8.5 g/dL Albumin [203083] 04/21/2024 05:24 AM 4.3 g/dL 3.8-4.9 g/dL Globulin, Total [216674] 04/21/2024 05:24 AM 2.7 g/dL 1.5-4.5 g/dL Bilirubin, Total [314165] 04/21/2024 05:24 AM 1.1 mg/dL 0.0-1.2 mg/dL Alkaline Phosphatase [711935] 04/21/2024 05:24 AM 63 IU/L 44-121 IU/L AST (SGOT) [407120] 04/21/2024 05:24 AM 24 IU/L 0-40 IU/L ALT (SGPT) [526496] 04/21/2024 05:24 AM 26 IU/L 0-44 IU/L Lipid Panel[698744] Collected: 04/20/2024 03:15 PM Specimen Received: 04/20/2024 05:00 AM Source: [facility] Cholesterol, Total [480067] 04/21/2024 05:25 AM 129 mg/dL 100-199 mg/d L Triglycerides [074800] 04/21/2024 05:25 AM 106 mg/dL 0-149 mg/dL HDL Cholesterol [249583] 04/21/2024 05:25 AM 54 mg/dL >39 mg/dL VLDL Cholesterol Emanuel [374974] 04/21/2024 05:25 AM 19 mg/dL 5-40 mg/dL LDL Chol Calc ([facility]) [840322] 04/21/2024 05:25 AM 56 mg/dL 0-99 mg/dL Albumin/Creatinine Ratio,Uri ne[275476] Collected: 04/20/2024 03:15 PM Specimen Received: 04/20/2024 05:00 AM Source: [facility] Creatinine, Urine [812586] 04/21/2024 06:31 PM 238.1 mg/dL Not Estab. m g/dL Albumin, Urine [852104] 04/21/2024 06:38 PM 25.2 ug/mL Not Estab. ug/mL Alb/Creat Ratio [794356] 04/21/2024 06:38 PM 11 mg/g creat 0-29 mg/g creat Normal: 0 - 29 Moderately in creased: 30 - 300 Severely increased: >300 Hemoglobin A1c[904446] Collected: 04/20/2024 03:15 PM Specimen Received: 04/20/2024 05:00 AM Source: [facility] Hemoglobin A1c [657056] 04/21/2024 04:36 AM 5.9 % H 4.8-5.6 % . Prediabetes: 5.7 - 6.4 Haydee betes: >6.4 Glycemic control for adults with diabetes: 7.0 Comp. Metabolic Panel (14)[3 00324] Collected: 05/04/2023 03:40 PM Specimen Received: 05/04/2023 05:00 AM Source: [facility] Glucose [420827] 05/05/2023 01:17 PM 129 mg/dL H 70-99 mg/dL BUN [503528] 05/05/2023 01:17 PM 17 mg/dL 6-2 4 mg/dL Creatinine [516659] 05/05/2023 01:18 PM 1.10 mg/dL 0.76-1.27 mg/dL eGFR [300219] 05/05/2023 01:18 PM 78 mL/min/1.73 >59 mL/min/1.73 BUN/Creatinine Ratio [598920] 05/05/2023 01:18 PM 15 9-20 Sodium [057353] 05/05/2023 01:17 PM 142 mmol/L 134-144 mmol/L Potassium [926416] 05/05/2023 01:16 PM 4.4 mmol/L 3.5-5.2 mmol/L Chloride [688370] 05/05/2023 01:16 PM 102 mmol/L 96-106 mmol/L Carbon Dioxide, Total [906333] 05/05/2023 01:17 PM 26 mmol/L 20-29 mmol/L Calcium [135869] 05/05/2023 01:17 PM 9.7 mg/dL 8.7-10.2 mg/dL Protein, Total [744242] 05/05/2023 01:18 PM 7.0 g/dL 6.0-8.5 g/dL Albumin [287518] 05/05/2023 01:18 PM 4.4 g/dL 3.8-4.9 g/dL Globulin, Total [030674] 05/05/2023 01:18 PM 2.6 g/dL 1.5-4.5 g/dL A/G Ratio [783907] 05/05/2023 01:18 PM 1.7 1.2-2.2 Bilirubin, Total [314728] 05/05/2023 01:18 PM 1.4 mg/dL H 0.0-1.2 mg/dL Alkaline Phosphatase [776447] 05/05/2023 01:18 PM 69 IU/L 44-121 IU/L AST (SGOT) [539293] 05/05/2023 01:18 PM 17 IU/L 0-40 IU/L ALT (SGPT) [703966] 05/05/2023 01:18 PM 21 IU/L 0-44 IU/L Lipid Panel[866656] Collected: 05/04/2023 03:40 PM Specimen Received: 05/04/2023 05:00 AM Source: [facility] Cholesterol, Total [943803] 05/05/2023 01:26 PM 110 mg/dL 100-199 mg/d L Triglycerides [058159] 05/05/2023 01:27 PM 85 mg/dL 0-149 mg/dL HDL Cholesterol [136017] 05/05/2023 01:26 PM 44 mg/dL >39 mg/dL VLDL Cholesterol Emanuel [750295] 05/05/2023 01:27 PM 17 mg/dL 5-40 mg/dL LDL Chol Calc ([facility]) [609238] 05/05/2023 01:27 PM 49 mg/dL 0-99 mg/dL Albumin/Creatinine Ratio,Uri ne[115282] Collected: 05/04/2023 03:40 PM Specimen Received: 05/04/2023 05:00 AM Source: [facility] Creatinine, Urine [842884] 05/05/2023 06:55 PM 101.2 mg/dL Not Estab. m g/dL Albumin, Urine [006456] 05/05/2023 07:07 PM 14.4 ug/mL Not Estab. ug/mL Alb/Creat Ratio [805342] 05/05/2023 07:07 PM 14 mg/g creat 0-29 mg/g creat Normal: 0 - 29 Moderately in creased: 30 - 300 Severely increased: >300 Hemoglobin A1c[430938] Collected: 05/04/2023 03:40 PM Specimen Received: 05/04/2023 05:00 AM Source: [facility] Hemoglobin A1c [541078] 05/05/2023 06:14 PM 5.8 % H 4.8-5.6 % . Prediabetes: 5.7 - 6.4 Haydee betes: >6.4 Glycemic control for adults with diabetes: 7.0 Comp. Metabolic Panel (14)[3 64737] Collected: 10/28/2022 03:21 PM Specimen Received: 10/28/2022 05:00 AM Source: [facility] Glucose [384023] 10/29/2022 08:28 AM 154 mg/dL H 70-99 mg/dL BUN [480383] 10/29/2022 08:28 AM 13 mg/dL 6-2 4 mg/dL Creatinine [811096] 10/29/2022 08:40 AM 1.08 mg/dL 0.76-1.27 mg/dL eGFR [256305] 10/29/2022 08:40 AM 81 mL/min/1.73 >59 mL/min/1.73 BUN/Creatinine Ratio [837755] 10/29/2022 08:40 AM 12 9-20 Sodium [621679] 10/29/2022 08:19 AM 140 mmol/L 134-144 mmol/L Potassium [921328] 10/29/2022 08:20 AM 3.9 mmol/L 3.5-5.2 mmol/L Chloride [916972] 10/29/2022 08:19 AM 99 mmol/L 96-106 mmol/L Carbon Dioxide, Total [295655] 10/29/2022 08:28 AM 27 mmol/L 20-29 mmol/L Calcium [347065] 10/29/2022 08:28 AM 9.1 mg/dL 8.7-10.2 mg/dL Protein, Total [238984] 10/29/2022 08:39 AM 6.6 g/dL 6.0-8.5 g/dL Albumin [094989] 10/29/2022 08:39 AM 4.2 g/dL 3.8-4.9 g/dL Globulin, Total [945008] 10/29/2022 08:39 AM 2.4 g/dL 1.5-4.5 g/dL A/G Ratio [622571] 10/29/2022 08:39 AM 1.8 1.2-2.2 Bilirubin, Total [830399] 10/29/2022 08:40 AM 1.7 mg/dL H 0.0-1.2 mg/dL Alkaline Phosphatase [608029] 10/29/2022 08:39 AM 74 IU/L 44-121 IU/L AST (SGOT) [409063] 10/29/2022 08:39 AM 13 IU/L 0-40 IU/L ALT (SGPT) [453936] 10/29/2022 08:40 AM 17 IU/L 0-44 IU/L Lipid Panel[955659] Collected: 10/28/2022 03:21 PM Specimen Received: 10/28/2022 05:00 AM Source: [facility] Cholesterol, Total [711871] 10/29/2022 08:41 AM 115 mg/dL 100-199 mg/d L Triglycerides [862662] 10/29/2022 08:41 AM 202 mg/dL H 0-149 mg/dL HDL Cholesterol [100162] 10/29/2022 08:41 AM 35 mg/dL L >39 mg/dL VLDL Cholesterol Emanuel [154720] 10/29/2022 08:41 AM 33 mg/dL 5-40 mg/dL LDL Chol Calc ([facility]) [778601] 10/29/2022 08:41 AM 47 mg/dL 0-99 mg/dL Albumin/Creatinine Ratio,Uri ne[640303] Collected: 10/28/2022 03:21 PM Specimen Received: 10/28/2022 05:00 AM Source: [facility] Creatinine, Urine [902103] 10/29/2022 06:21 PM 109.3 mg/dL Not Estab. m g/dL Albumin, Urine [312771] 10/29/2022 06:07 PM 12.4 ug/mL Not Estab. ug/mL Alb/Creat Ratio [697724] 10/29/2022 06:21 PM 11 mg/g creat 0-29 mg/g creat Normal: 0 - 29 Moderately in creased: 30 - 300 Severely increased: >300 Hemoglobin A1c[494284] Collected: 10/28/2022 03:21 PM Specimen Received: 10/28/2022 05:00 AM Source: [facility] Hemoglobin A1c [066444] 10/29/2022 10:53 AM 7.4 % H 4.8-5.6 % . Prediabetes: 5.7 - 6.4 Haydee betes: >6.4 Glycemic control for adults with diabetes: 7.0 Allergies, adverse reactions, alerts No known allergies and adverse reactions Medications No administered medications reported Vital Signs No vital signs reported Social History No smoking Hx information available
--- OUTSIDE RECORDS SUMMARY | 2025-03-26 16:32 | XMS_ITS | Clinical Summary ---
Author Organization [facility] Address [address] [place] [address] Care Team Providers Care Precision Assembler Name Role Phone Natanael Mcfarland Primary Care Provider [phone] Medications Hospital, Clinic, or Other Facility Administered [...] 10/31/2015 Zoster Vaccines (1 of 2) 10/31/2015 Alcohol/Substance Use Screening 07/18/2024 COVID-19 Vaccine ( season) 2025, 09/06/2020 Influenza Vaccine (#1) 2025 RSV Vaccine (60+ years old a nd patients) (1 - 1-dose 75+ series) [address] [facility] OUT OF STATE HMO Care Teams Precision Assembler Relationship Specialty Start Date End Date Natanael Mcfarland PCP - General Internal Medicine 03/31/21
--- OUTSIDE RECORDS SUMMARY | 2025-03-26 16:32 | XMS_ITS | Clinical Summary ---
Author Organization [facility] Address [address] [place] [address] Phone Care Team Providers Care Shredder/Granulator Operator Name Role Phone Natanael Mcfarland MD Primary Care Provider [phone] Allergies Active Allergy Reactions Criticality Noted Date Comments Attapulgite Hives 09/08/2017 Other 09/08/2017 Medications allopurinoL (ZYLOPRIM) 100 mg tablet Take by mouth 1 (one) time each day. Active amLODIPine-bia azepril (LOTREL) 5-20 mg per capsule Take 1 capsule by mouth 1 (one) time each day. 04/26/20 17 Active apixaban (ELIQUIS) 5 mg tablet 2 (two) times a day. Active aspirin 81 mg EC tablet Take 1 tablet (81 mg total) by mouth daily. Active buPROPion [...] (eight) hours as needed. Active metFORMIN (GLUCOPHAGE) 1,000 mg tablet Active semaglutide (Ozempic) 1 mg/dose (2 mg/1.5 mL) injection pen Semaglutide (OZEMPIC, 1 MG/DOSE, SC): Inject under the skin. - Subcutaneous Active tamsulosin (FLOMAX) 0.4 mg 24 hr capsule Take 1 capsule (0.4 mg total) by mouth daily. Active testosterone cypionate (DEPO-TESTOTER ONE) 200 mg/mL injection INJECT 1.2ML INTRAMUSCULARLY EVERY 2 WEEKS DIRECTED 02/11/20 17 Active folic acid (FOLVITE) 1 mg tablet Take 1 tablet (1,000 mcg total) by mouth 1 (one) time each day. 07/19/19 25 Active traZODone (DESYREL) 50 mg tablet take 1 tablet by mouth every day at bedtime as needed for 30 days 08/01/19 25 Active cholecalcifero l (VITAMIN D-3) 5,000 Units tablet Take 1 tablet (5,000 Units total) by mouth. Active ascorbic acid (VITAMIN C) 1,000 mg tablet Take 1 tablet (1,000 mg total) by mouth. Active TESTOSTERONE IM Inject into the shoulder, thigh, or buttocks. Active meloxicam (MOBIC) 15 mg tablet Take 1 tablet (15 mg total) by mouth 1 (one) time each day. 06/26/20 24 Active atorvastatin (LIPITOR) 40 mg tablet TAKE 1 TABLET BY MOUTH EVERY DAY 90 tablet 3 02/02/20 25 Active Active Problems Problem Noted Date Diagnosed Date Depression 09/12/2017 Diabetes mellitus type 2, un complicated ([facility] V24, [facility] V28) 09/12/2017 GERD (gastroesophageal reflux disease) 8 Gout 09/12/2017 Hyperlipidemia 09/12/2017 Hypertension 09/12/2017 Nephrolithiasis 09/12/2017 DIANE (obstructive sleep apnea) 09/08/2017 Overview (09/08/2023): Overview: CPAP Polycythemia, 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 Encounters Date Type Department Care Team Description 02/01/2025 Telephone Pulmonol - [address] [place] [address] Kelby Kolb MD from Last 3 Months Immunizations Name Administration Dates Next Due Pfizer SARS-CoV-2 COVID-19, mRNA, LNP-S, preservative free 09/27/2020,09/06/2020 Surgical History Surgery Date Site/Laterality Comments OTHER SURGICAL HISTORY 05/2009 Right PROCEDURE: [place] LAPAROSCOPY SURGICAL ORCHIECTOMY; COMMENT: testicular cancer BACK SURGERY 04/2001 PROCEDURE: HISTORICAL BACK SURGERY; COMMENT: C4-C5 discectomy & fusion LITHOTRIPSY 04/2000 PROCEDURE: HISTORICAL LITHOTRIPSY; COMMENT: kidney stones Medical History Medical History Date Comments Morbid obesity with BMI of 4 5.0-49.9, adult ([facility] V24, [facility] V28) 09/08/2017 DX:Morbid obesity wit h BMI of 45.0-49.9, adult ([facility]) History of testicular cancer 09/12/2017 DX: History of testicular cancer Hypertension 09/12/2017 DX:Hypertension Hyperlipidemia 09/12/2017 DX:Hyperlipidemi a GERD (gastroesophageal reflux disease) 09/12/2017 DX:GERD (gastroesophageal reflux disease) Gout 09/12/2017 DX:Gout Diabetes mellitus type 2, un complicated ([facility] V24, [facility] V28) 09/12/2017 DX:Diabetes mellitus type 2 , uncomplicated ([facility]) Depression 09/12/2017 DX:Depression Nephrolithiasis 09/12/2017 DX:Nephrolithias is Family History Medical History Relation Name Comments COPD Mother CVA Relation Name Status Comments Mother Social History Tobacco Use Types Packs/Day Years Used Date Smoking Tobacco: Never Smokeless Tobacco: Never Tobacco Cessation:Counseling Given: Not Answered Alcohol Use Standard Drinks/Week Comments Yes 0 (1 standard drink = 0.6 oz pur e alcohol) Sex and Gender Information Value Date Recorded Sex Assigned at Not on file Legal Sex Male 10:57 PM EST Gender Identity Not on file Sexual Orientation Straight 08/20/2022 6: 55 PM EST Obstetrics History Last Filed Vital Signs Vital Sign Reading Time Taken Comments Blood Pressure 131/68 11/27/2024 9:10 AM EDT Pulse 74 11/27/2024 9:10 AM EDT Temperature 36.5 C (97.7 F) 11/27/2024 9:10 AM EDT Respiratory Rate - - Oxygen Saturation 98% 11/27/2024 9:10 AM EDT Inhaled Oxygen Concentration - - Weight 138 kg (303 lb 3.2 oz) 11/27/2024 9:10 AM EDT Height 182.9 cm (6') 11/27/2024 9:10 AM EDT Body Mass Index 41.12 11/27/2024 9:10 AM EDT Plan of Treatment Upcoming Encounters Date Type Department Care Team (Late st Contact Info) Description 09/27/2025 9:30 AM EDT Office Visit Pulmonolgy - [place] [address] [phone] Kelby Kolb MD [address] [id number] 11/27/2025 9:00 AM EDT Office Visit [facility] Hematology Oncology [address] [place] [phone] Davion-Oswaldo Alvarez MD [address] [place] [phone] Health Maintenance Due Date Last Done Comments Diabetes: Annual GFR (Glomerular Filtration Rate) 1965 Diabetes: Annual Foot Exam 10/31/1975 Diabetes: Annual Retina Eye Exam 10/31/1975 DTaP,Tdap,and Td Vaccines (1 - Tdap) 1984 Hepatitis B Vaccines (1 of 3 - 19+ 3-dose series) 1984 Pneumococcal Vaccine: 50+ Years (1 of 2 - PCV) 1984 Zoster Vaccines (1 of 2) 10/31/2015 Cholesterol Screening (Lipid Panel) 06/20/2022 Colorectal Cancer Screening: Colonoscopy 06/20/2022 HIV Screening 06/20/2022 Hepatitis C Screening 06/20/2022 Social Influencers of Health Screening 06/20/2022 Diabetes: Annual Urine Albumin-Creatinine Ratio (uACR) 06/29/2022 Diabetes: Blood Sugar Control Test (HGBA1C) 06/29/2022 Hypertension/CHF/CAD Annual BMP Blood Test 06/29/2022 Depression Screening 07/18/2024 COVID-19 Vaccine (5 - 2025-26 season) 2025 05/05/2022, 10/14/2021, 09/27/2020, Additional history exists Influenza Vaccine (#1) 2025 , 06/28/2023, 05/05/2022, Additional history exists RSV Immunization Adult Patients (1 - 1-dose 75+ series) 2040 HIB Vaccines Aged Out No longer eligi [...] age to complete this topic Meningococcal B Vaccine Aged Out No l onger eligible based on patient's age to complete this topic RSV Immunization Patients Under 20 months Aged Out No longer eligible based on patient's age to complete this topic Varicella Vaccines Aged Out No longer eligible based on patient's age to complete this topic Insurance [facility] [place] [address] [facility] (ON LICENSE OF [facility]) Care Teams Shredder/Granulator Operator Relationship Specialty Start Date End Date Natanael Mcfarland MD [address] [place] [address] PCP - General Internal Medicine 09/06/24
--- OUTSIDE RECORDS SUMMARY | 2025-03-26 16:32 | XMS_ITS | Continuity of Care Document ---
Author Organization [facility] Address [address] [facility] [address] [place] [id number] Insurance Providers Payer Plan Claims Address Claims Phone Policy Number Group Number Relation Employer Guarantor Name Guarantor Guarantor Address Guarantor Phone [employer] [address], [place] [id number] BCBS BCBS [address], [place] [address] tel:[phone] BCBSMA BCBSM A [address], [place] [address] tel:[phone] Problems Unknown Problems Results Test Result Date/Time Value / Unit Interp. Refere nce Range Hemoglobin A1c[[id number]] Collected: 04/20/2024 03:13 PM Specimen Received: 04/20/2024 05:00 AM Source: [facility] Hemoglobin A1c [[id number]] 04/24/2024 03:19 PM TNP % Please refer to the followin g specimen for additional lab results.[id number] . Prediabetes: 5.7 - 6.4 Diabetes: >6.4 Glycemic control for adults with diabetes: 7.0 Request Problem[[id number]] Collected: 04/20/2024 03:13 PM Specimen Received: 04/20/2024 05:00 AM Source: [facility] Request Problem [[id number]] 04/24/2024 03:19 PM TNP Please refer to the followin g specimen for additional lab results. TEST: [id number] Hemoglobin [id number] Comp. Metabolic Panel (14)[3 [id number]] Collected: 04/20/2024 03:15 PM Specimen Received: 04/20/2024 05:00 AM Source: [facility] Glucose [[id number]] 04/21/2024 05:24 AM 104 mg/dL H 70-99 mg/dL BUN [[id number]] 04/21/2024 05:24 AM 16 mg/dL 6-2 4 mg/dL Creatinine [[id number]] 04/21/2024 05:24 AM 1.08 mg/dL 0.76-1.27 mg/dL eGFR [044179] 04/21/2024 05:24 AM 80 mL/min/1.73 >59 mL/min/1.73 BUN/Creatinine Ratio [712212] 04/21/2024 05:24 AM 15 9-20 Sodium [271182] 04/21/2024 05:21 AM 144 mmol/L 134-144 mmol/L Potassium [864664] 04/21/2024 05:24 AM 4.1 mmol/L 3.5-5.2 mmol/L Chloride [504776] 04/21/2024 05:21 AM 104 mmol/L 96-106 mmol/L Carbon Dioxide, Total [389959] 04/21/2024 05:24 AM 27 mmol/L 20-29 mmol/L Calcium [788329] 04/21/2024 05:24 AM 9.3 mg/dL 8.7-10.2 mg/dL Protein, Total [606577] 04/21/2024 05:24 AM 7.0 g/dL 6.0-8.5 g/dL Albumin [822375] 04/21/2024 05:24 AM 4.3 g/dL 3.8-4.9 g/dL Globulin, Total [265609] 04/21/2024 05:24 AM 2.7 g/dL 1.5-4.5 g/dL Bilirubin, Total [328908] 04/21/2024 05:24 AM 1.1 mg/dL 0.0-1.2 mg/dL Alkaline Phosphatase [851619] 04/21/2024 05:24 AM 63 IU/L 44-121 IU/L AST (SGOT) [122435] 04/21/2024 05:24 AM 24 IU/L 0-40 IU/L ALT (SGPT) [137548] 04/21/2024 05:24 AM 26 IU/L 0-44 IU/L Lipid Panel[478465] Collected: 04/20/2024 03:15 PM Specimen Received: 04/20/2024 05:00 AM Source: [facility] Cholesterol, Total [[id number]] 04/21/2024 05:25 AM 129 mg/dL 100-199 mg/d L Triglycerides [249583] 04/21/2024 05:25 AM 106 mg/dL 0-149 mg/dL HDL Cholesterol [247032] 04/21/2024 05:25 AM 54 mg/dL >39 mg/dL VLDL Cholesterol Emanuel [832896] 04/21/2024 05:25 AM 19 mg/dL 5-40 mg/dL LDL Chol Calc (NIH) [100456] 04/21/2024 05:25 AM 56 mg/dL 0-99 mg/dL Albumin/Creatinine Ratio,Uri ne[837396] Collected: 04/20/2024 03:15 PM Specimen Received: 04/20/2024 05:00 AM Source: [facility] Creatinine, Urine [[id number]] 04/21/2024 06:31 PM 238.1 mg/dL Not Estab. m g/dL Albumin, Urine [003313] 04/21/2024 06:38 PM 25.2 ug/mL Not Estab. ug/mL Alb/Creat Ratio [652470] 04/21/2024 06:38 PM 11 mg/g creat 0-29 mg/g creat Normal: 0 - 29 Moderately in creased: 30 - 300 Severely increased: >300 Hemoglobin A1c[500767] Collected: 04/20/2024 03:15 PM Specimen Received: 04/20/2024 05:00 AM Source: [facility] Hemoglobin A1c [[id number]] 04/21/2024 04:36 AM 5.9 % H 4.8-5.6 % . Prediabetes: 5.7 - 6.4 Haydee betes: >6.4 Glycemic control for adults with diabetes: 7.0 Comp. Metabolic Panel (14)[3 63969] Collected: 05/04/2023 03:40 PM Specimen Received: 05/04/2023 05:00 AM Source: [facility] Glucose [[id number]] 05/05/2023 01:17 PM 129 mg/dL H 70-99 mg/dL BUN [926604] 05/05/2023 01:17 PM 17 mg/dL 6-2 4 mg/dL Creatinine [821442] 05/05/2023 01:18 PM 1.10 mg/dL 0.76-1.27 mg/dL eGFR [415537] 05/05/2023 01:18 PM 78 mL/min/1.73 >59 mL/min/1.73 BUN/Creatinine Ratio [374113] 05/05/2023 01:18 PM 15 9-20 Sodium [265974] 05/05/2023 01:17 PM 142 mmol/L 134-144 mmol/L Potassium [941916] 05/05/2023 01:16 PM 4.4 mmol/L 3.5-5.2 mmol/L Chloride [885676] 05/05/2023 01:16 PM 102 mmol/L 96-106 mmol/L Carbon Dioxide, Total [950999] 05/05/2023 01:17 PM 26 mmol/L 20-29 mmol/L Calcium [044703] 05/05/2023 01:17 PM 9.7 mg/dL 8.7-10.2 mg/dL Protein, Total [554484] 05/05/2023 01:18 PM 7.0 g/dL 6.0-8.5 g/dL Albumin [462517] 05/05/2023 01:18 PM 4.4 g/dL 3.8-4.9 g/dL Globulin, Total [702977] 05/05/2023 01:18 PM 2.6 g/dL 1.5-4.5 g/dL A/G Ratio [871172] 05/05/2023 01:18 PM 1.7 1.2-2.2 Bilirubin, Total [352568] 05/05/2023 01:18 PM 1.4 mg/dL H 0.0-1.2 mg/dL Alkaline Phosphatase [071925] 05/05/2023 01:18 PM 69 IU/L 44-121 IU/L AST (SGOT) [544653] 05/05/2023 01:18 PM 17 IU/L 0-40 IU/L ALT (SGPT) [623400] 05/05/2023 01:18 PM 21 IU/L 0-44 IU/L Lipid Panel[545076] Collected: 05/04/2023 03:40 PM Specimen Received: 05/04/2023 05:00 AM Source: [facility] Cholesterol, Total [[id number]] 05/05/2023 01:26 PM 110 mg/dL 100-199 mg/d L Triglycerides [046881] 05/05/2023 01:27 PM 85 mg/dL 0-149 mg/dL HDL Cholesterol [050575] 05/05/2023 01:26 PM 44 mg/dL >39 mg/dL VLDL Cholesterol Emanuel [207435] 05/05/2023 01:27 PM 17 mg/dL 5-40 mg/dL LDL Chol Calc (NIH) [389770] 05/05/2023 01:27 PM 49 mg/dL 0-99 mg/dL Albumin/Creatinine Ratio,Uri ne[048471] Collected: 05/04/2023 03:40 PM Specimen Received: 05/04/2023 05:00 AM Source: [facility] Creatinine, Urine [[id number]] 05/05/2023 06:55 PM 101.2 mg/dL Not Estab. m g/dL Albumin, Urine [[id number]] 05/05/2023 07:07 PM 14.4 ug/mL Not Estab. ug/mL Alb/Creat Ratio [452902] 05/05/2023 07:07 PM 14 mg/g creat 0-29 mg/g creat Normal: 0 - 29 Moderately in creased: 30 - 300 Severely increased: >300 Hemoglobin A1c[[id number]] Collected: 05/04/2023 03:40 PM Specimen Received: 05/04/2023 05:00 AM Source: [facility] Hemoglobin A1c [[id number]] 05/05/2023 06:14 PM 5.8 % H 4.8-5.6 % . Prediabetes: 5.7 - 6.4 Haydee betes: >6.4 Glycemic control for adults with diabetes: 7.0 Comp. Metabolic Panel (14)[3 57811] Collected: 10/28/2022 03:21 PM Specimen Received: 10/28/2022 05:00 AM Source: [facility] Glucose [[id number]] 10/29/2022 08:28 AM 154 mg/dL H 70-99 mg/dL BUN [083781] 10/29/2022 08:28 AM 13 mg/dL 6-2 4 mg/dL Creatinine [169262] 10/29/2022 08:40 AM 1.08 mg/dL 0.76-1.27 mg/dL eGFR [828319] 10/29/2022 08:40 AM 81 mL/min/1.73 >59 mL/min/1.73 BUN/Creatinine Ratio [362798] 10/29/2022 08:40 AM 12 9-20 Sodium [315341] 10/29/2022 08:19 AM 140 mmol/L 134-144 mmol/L Potassium [822059] 10/29/2022 08:20 AM 3.9 mmol/L 3.5-5.2 mmol/L Chloride [607400] 10/29/2022 08:19 AM 99 mmol/L 96-106 mmol/L Carbon Dioxide, Total [459516] 10/29/2022 08:28 AM 27 mmol/L 20-29 mmol/L Calcium [540805] 10/29/2022 08:28 AM 9.1 mg/dL 8.7-10.2 mg/dL Protein, Total [261357] 10/29/2022 08:39 AM 6.6 g/dL 6.0-8.5 g/dL Albumin [352184] 10/29/2022 08:39 AM 4.2 g/dL 3.8-4.9 g/dL Globulin, Total [341050] 10/29/2022 08:39 AM 2.4 g/dL 1.5-4.5 g/dL A/G Ratio [522151] 10/29/2022 08:39 AM 1.8 1.2-2.2 Bilirubin, Total [841544] 10/29/2022 08:40 AM 1.7 mg/dL H 0.0-1.2 mg/dL Alkaline Phosphatase [488624] 10/29/2022 08:39 AM 74 IU/L 44-121 IU/L AST (SGOT) [960048] 10/29/2022 08:39 AM 13 IU/L 0-40 IU/L ALT (SGPT) [918963] 10/29/2022 08:40 AM 17 IU/L 0-44 IU/L Lipid Panel[[id number]] Collected: 10/28/2022 03:21 PM Specimen Received: 10/28/2022 05:00 AM Source: [facility] Cholesterol, Total [[id number]] 10/29/2022 08:41 AM 115 mg/dL 100-199 mg/d L Triglycerides [260820] 10/29/2022 08:41 AM 202 mg/dL H 0-149 mg/dL HDL Cholesterol [536760] 10/29/2022 08:41 AM 35 mg/dL L >39 mg/dL VLDL Cholesterol Emanuel [507046] 10/29/2022 08:41 AM 33 mg/dL 5-40 mg/dL LDL Chol Calc (NIH) [816613] 10/29/2022 08:41 AM 47 mg/dL 0-99 mg/dL Albumin/Creatinine Ratio,Uri ne[411600] Collected: 10/28/2022 03:21 PM Specimen Received: 10/28/2022 05:00 AM Source: [facility] Creatinine, Urine [[id number]] 10/29/2022 06:21 PM 109.3 mg/dL Not Estab. m g/dL Albumin, Urine [024524] 10/29/2022 06:07 PM 12.4 ug/mL Not Estab. ug/mL Alb/Creat Ratio [498600] 10/29/2022 06:21 PM 11 mg/g creat 0-29 mg/g creat Normal: 0 - 29 Moderately in creased: 30 - 300 Severely increased: >300 Hemoglobin A1c[[id number]] Collected: 10/28/2022 03:21 PM Specimen Received: 10/28/2022 05:00 AM Source: [facility] Hemoglobin A1c [[id number]] 10/29/2022 10:53 AM 7.4 % H 4.8-5.6 % . Prediabetes: 5.7 - 6.4 Haydee betes: >6.4 Glycemic control for adults with diabetes: 7.0 Allergies, adverse reactions, alerts No known allergies and adverse reactions Medications No administered medications reported Vital Signs No vital signs reported Social History No smoking Hx information available
--- OUTSIDE RECORDS SUMMARY | 2025-03-26 16:32 | XMS_ITS ---
Author Name [facility] Organization Unknown Care Team Organization Name Specialty Phone Email Start Date End [facility] 06/01/2024 03/17/2025
== END 2025-03-26 13:53 | disposition home or self-care (01) ==
LOC: HO.BBR 13:52
PROVIDERS: PCP Internal Medicine; Visit Provider Internal Medicine
DX: D75.1 Secondary polycythemia (principal)
CPT/HCPCS: 85018; 99195

== ENCOUNTER 2025-05-14 14:59 | Outpatient (REF) | payer BC, SELFPAY ==
--- OUTSIDE RECORDS SUMMARY | 2025-05-14 19:23 | XMS_ITS | Continuity of Care Document ---
Author Organization [facility] Address [facility] [address] [place] [address] Insurance Providers Payer Plan Claims Address Claims Phone Policy Number Group Number Relation Employer Guarantor Name Guarantor Guarantor Address Guarantor Phone [employer]ERRY S [employer] D OF [employer] [address], [place] [id number] BCBS BCBS [address], [place] [address] tel:[phone] [id number] BCBSMA BCBSM A [address], [place] [address] tel:[phone] Problems Unknown Problems Results Test Result Date/Time Value / Unit Interp. Refere nce Range Hemoglobin A1c[[id number]] Collected: 04/20/2024 03:13 PM Specimen Received: 04/20/2024 05:00 AM Source: [facility] Hemoglobin A1c [[id number]] 04/24/2024 03:19 PM TNP % Please refer to the followin g specimen for additional lab results.[phone] . Prediabetes: 5.7 - 6.4 Diabetes: >6.4 Glycemic control for adults with diabetes: 7.0 Request Problem[[id number]] Collected: 04/20/2024 03:13 PM Specimen Received: 04/20/2024 05:00 AM Source: [facility] Request Problem [[id number]] 04/24/2024 03:19 PM TNP Please refer to the followin g specimen for additional lab results. TEST: [id number] Hemoglobin [id number] Comp. Metabolic Panel (14)[3 99530] Collected: 04/20/2024 03:15 PM Specimen Received: 04/20/2024 05:00 AM Source: [facility] Glucose [[id number]] 04/21/2024 05:24 AM 104 mg/dL H 70-99 mg/dL BUN [[id number]] 04/21/2024 05:24 AM 16 mg/dL 6-2 4 mg/dL Creatinine [718092] 04/21/2024 05:24 AM 1.08 mg/dL 0.76-1.27 mg/dL eGFR [997647] 04/21/2024 05:24 AM 80 mL/min/1.73 >59 mL/min/1.73 BUN/Creatinine Ratio [135145] 04/21/2024 05:24 AM 15 9-20 Sodium [264459] 04/21/2024 05:21 AM 144 mmol/L 134-144 mmol/L Potassium [339806] 04/21/2024 05:24 AM 4.1 mmol/L 3.5-5.2 mmol/L Chloride [086202] 04/21/2024 05:21 AM 104 mmol/L 96-106 mmol/L Carbon Dioxide, Total [023713] 04/21/2024 05:24 AM 27 mmol/L 20-29 mmol/L Calcium [501541] 04/21/2024 05:24 AM 9.3 mg/dL 8.7-10.2 mg/dL Protein, Total [297798] 04/21/2024 05:24 AM 7.0 g/dL 6.0-8.5 g/dL Albumin [883989] 04/21/2024 05:24 AM 4.3 g/dL 3.8-4.9 g/dL Globulin, Total [384822] 04/21/2024 05:24 AM 2.7 g/dL 1.5-4.5 g/dL Bilirubin, Total [261621] 04/21/2024 05:24 AM 1.1 mg/dL 0.0-1.2 mg/dL Alkaline Phosphatase [442948] 04/21/2024 05:24 AM 63 IU/L 44-121 IU/L AST (SGOT) [832231] 04/21/2024 05:24 AM 24 IU/L 0-40 IU/L ALT (SGPT) [914975] 04/21/2024 05:24 AM 26 IU/L 0-44 IU/L Lipid Panel[777848] Collected: 04/20/2024 03:15 PM Specimen Received: 04/20/2024 05:00 AM Source: [facility] Cholesterol, Total [[id number]] 04/21/2024 05:25 AM 129 mg/dL 100-199 mg/d L Triglycerides [100961] 04/21/2024 05:25 AM 106 mg/dL 0-149 mg/dL HDL Cholesterol [578920] 04/21/2024 05:25 AM 54 mg/dL >39 mg/dL VLDL Cholesterol Emanuel [653056] 04/21/2024 05:25 AM 19 mg/dL 5-40 mg/dL LDL Chol Calc (NIH) [187021] 04/21/2024 05:25 AM 56 mg/dL 0-99 mg/dL Albumin/Creatinine Ratio,Uri ne[903820] Collected: 04/20/2024 03:15 PM Specimen Received: 04/20/2024 05:00 AM Source: [facility] Creatinine, Urine [[id number]] 04/21/2024 06:31 PM 238.1 mg/dL Not Estab. m g/dL Albumin, Urine [[id number]] 04/21/2024 06:38 PM 25.2 ug/mL Not Estab. ug/mL Alb/Creat Ratio [910911] 04/21/2024 06:38 PM 11 mg/g creat 0-29 mg/g creat Normal: 0 - 29 Moderately i ncreased: 30 - 300 Severely increased: >300 Hemoglobin A1c[340576] Collected: 04/20/2024 03:15 PM Specimen Received: 04/20/2024 05:00 AM Source: [facility] Hemoglobin A1c [670606] 04/21/2024 04:36 AM 5.9 % H 4.8-5.6 % . Prediabetes: 5.7 - 6.4 Haydee betes: >6.4 Glycemic control for adults with diabetes: 7.0 Comp. Metabolic Panel (14)[3 45910] Collected: 05/04/2023 03:40 PM Specimen Received: 05/04/2023 05:00 AM Source: [facility] Glucose [[id number]] 05/05/2023 01:17 PM 129 mg/dL H 70-99 mg/dL BUN [363067] 05/05/2023 01:17 PM 17 mg/dL 6-2 4 mg/dL Creatinine [836086] 05/05/2023 01:18 PM 1.10 mg/dL 0.76-1.27 mg/dL eGFR [095379] 05/05/2023 01:18 PM 78 mL/min/1.73 >59 mL/min/1.73 BUN/Creatinine Ratio [997366] 05/05/2023 01:18 PM 15 9-20 Sodium [605881] 05/05/2023 01:17 PM 142 mmol/L 134-144 mmol/L Potassium [663574] 05/05/2023 01:16 PM 4.4 mmol/L 3.5-5.2 mmol/L Chloride [983574] 05/05/2023 01:16 PM 102 mmol/L 96-106 mmol/L Carbon Dioxide, Total [374455] 05/05/2023 01:17 PM 26 mmol/L 20-29 mmol/L Calcium [682439] 05/05/2023 01:17 PM 9.7 mg/dL 8.7-10.2 mg/dL Protein, Total [837781] 05/05/2023 01:18 PM 7.0 g/dL 6.0-8.5 g/dL Albumin [969090] 05/05/2023 01:18 PM 4.4 g/dL 3.8-4.9 g/dL Globulin, Total [341933] 05/05/2023 01:18 PM 2.6 g/dL 1.5-4.5 g/dL A/G Ratio [644706] 05/05/2023 01:18 PM 1.7 1.2-2.2 Bilirubin, Total [324302] 05/05/2023 01:18 PM 1.4 mg/dL H 0.0-1.2 mg/dL Alkaline Phosphatase [354718] 05/05/2023 01:18 PM 69 IU/L 44-121 IU/L AST (SGOT) [532725] 05/05/2023 01:18 PM 17 IU/L 0-40 IU/L ALT (SGPT) [385147] 05/05/2023 01:18 PM 21 IU/L 0-44 IU/L Lipid Panel[852849] Collected: 05/04/2023 03:40 PM Specimen Received: 05/04/2023 05:00 AM Source: [facility] Cholesterol, Total [617371] 05/05/2023 01:26 PM 110 mg/dL 100-199 mg/d L Triglycerides [054576] 05/05/2023 01:27 PM 85 mg/dL 0-149 mg/dL HDL Cholesterol [311451] 05/05/2023 01:26 PM 44 mg/dL >39 mg/dL VLDL Cholesterol Emanuel [128110] 05/05/2023 01:27 PM 17 mg/dL 5-40 mg/dL LDL Chol Calc (NIH) [671020] 05/05/2023 01:27 PM 49 mg/dL 0-99 mg/dL Albumin/Creatinine Ratio,Uri ne[672986] Collected: 05/04/2023 03:40 PM Specimen Received: 05/04/2023 05:00 AM Source: [facility] Creatinine, Urine [[id number]] 05/05/2023 06:55 PM 101.2 mg/dL Not Estab. m g/dL Albumin, Urine [521093] 05/05/2023 07:07 PM 14.4 ug/mL Not Estab. ug/mL Alb/Creat Ratio [735764] 05/05/2023 07:07 PM 14 mg/g creat 0-29 mg/g creat Normal: 0 - 29 Moderately in creased: 30 - 300 Severely increased: >300 Hemoglobin A1c[630479] Collected: 05/04/2023 03:40 PM Specimen Received: 05/04/2023 05:00 AM Source: [facility] Hemoglobin A1c [780895] 05/05/2023 06:14 PM 5.8 % H 4.8-5.6 % . Prediabetes: 5.7 - 6.4 Haydee betes: >6.4 Glycemic control for adults with diabetes: 7.0 Comp. Metabolic Panel (14)[3 71848] Collected: 10/28/2022 03:21 PM Specimen Received: 10/28/2022 05:00 AM Source: [facility] Glucose [[id number]] 10/29/2022 08:28 AM 154 mg/dL H 70-99 mg/dL BUN [225562] 10/29/2022 08:28 AM 13 mg/dL 6-2 4 mg/dL Creatinine [034852] 10/29/2022 08:40 AM 1.08 mg/dL 0.76-1.27 mg/dL eGFR [694632] 10/29/2022 08:40 AM 81 mL/min/1.73 >59 mL/min/1.73 BUN/Creatinine Ratio [655145] 10/29/2022 08:40 AM 12 9-20 Sodium [061926] 10/29/2022 08:19 AM 140 mmol/L 134-144 mmol/L Potassium [857118] 10/29/2022 08:20 AM 3.9 mmol/L 3.5-5.2 mmol/L Chloride [411738] 10/29/2022 08:19 AM 99 mmol/L 96-106 mmol/L Carbon Dioxide, Total [428755] 10/29/2022 08:28 AM 27 mmol/L 20-29 mmol/L Calcium [069805] 10/29/2022 08:28 AM 9.1 mg/dL 8.7-10.2 mg/dL Protein, Total [120760] 10/29/2022 08:39 AM 6.6 g/dL 6.0-8.5 g/dL Albumin [525025] 10/29/2022 08:39 AM 4.2 g/dL 3.8-4.9 g/dL Globulin, Total [028029] 10/29/2022 08:39 AM 2.4 g/dL 1.5-4.5 g/dL A/G Ratio [392019] 10/29/2022 08:39 AM 1.8 1.2-2.2 Bilirubin, Total [548983] 10/29/2022 08:40 AM 1.7 mg/dL H 0.0-1.2 mg/dL Alkaline Phosphatase [277638] 10/29/2022 08:39 AM 74 IU/L 44-121 IU/L AST (SGOT) [429603] 10/29/2022 08:39 AM 13 IU/L 0-40 IU/L ALT (SGPT) [813963] 10/29/2022 08:40 AM 17 IU/L 0-44 IU/L Lipid Panel[634910] Collected: 10/28/2022 03:21 PM Specimen Received: 10/28/2022 05:00 AM Source: [facility] Cholesterol, Total [331569] 10/29/2022 08:41 AM 115 mg/dL 100-199 mg/d L Triglycerides [564337] 10/29/2022 08:41 AM 202 mg/dL H 0-149 mg/dL HDL Cholesterol [767108] 10/29/2022 08:41 AM 35 mg/dL L >39 mg/dL VLDL Cholesterol Emanuel [593526] 10/29/2022 08:41 AM 33 mg/dL 5-40 mg/dL LDL Chol Calc (NIH) [490858] 10/29/2022 08:41 AM 47 mg/dL 0-99 mg/dL Albumin/Creatinine Ratio,Uri ne[366666] Collected: 10/28/2022 03:21 PM Specimen Received: 10/28/2022 05:00 AM Source: [facility] Creatinine, Urine [[id number]] 10/29/2022 06:21 PM 109.3 mg/dL Not Estab. m g/dL Albumin, Urine [[id number]] 10/29/2022 06:07 PM 12.4 ug/mL Not Estab. ug/mL Alb/Creat Ratio [748841] 10/29/2022 06:21 PM 11 mg/g creat 0-29 mg/g creat Normal: 0 - 29 Moderately i ncreased: 30 - 300 Severely increased: >300 Hemoglobin A1c[[id number]] Collected: 10/28/2022 03:21 PM Specimen Received: 10/28/2022 05:00 AM Source: [facility] Hemoglobin A1c [161854] 10/29/2022 10:53 AM 7.4 % H 4.8-5.6 % . Prediabetes: 5.7 - 6.4 Haydee betes: >6.4 Glycemic control for adults with diabetes: 7.0 Allergies, adverse reactions, alerts No known allergies and adverse reactions Medications No administered medications reported Vital Signs No vital signs reported Social History No smoking Hx information available
--- OUTSIDE RECORDS SUMMARY | 2025-05-14 19:23 | XMS_ITS | Data Portability ---
Author Organization [facility], [facility] Address [address] [place] [address] Care Team Providers Care Dye House Supervisor Name Role Phone HAI BULLARD Primary Care Provider [phone] Assessment No assessment recorded. Plan of Treatment Reminders Order Date Submit Date Provider Last Modified By Organization Details Last Modified Time Details Appointments None recorde d. Lab None recorde d. Referral None recorde d. Procedures None recorde d. Surgeries None recorde d. Imaging XR, hip + pelvis, unilate ral, 2 or 3 view - right hip rm [id number] 11/17/19 [facility], [address], [address], [place], [address], 5 09:13:46 Medication Orders None recorde d. Patient TargetsNo targets recorded. Patient InstructionsNo instructions recorded. Reason for Referral None Reported. Results Created Date Observation Date Name Description Value Unit Range Abnormal Flag Note LastModifiedBy Organization Detail LastModifiedTime 11/17/19 25 11/16/2024 XR, hip + pelvi s, unila teral , 2 or 3 view http:/ [email or web address] ?Encry pted=s hAaTro YD8dLq bEUv6g %2BXZw aYqtaq 0bqfl% 2Fg9IQ a4ajBk vP9nXo QUaueC m3YtLR FvZlgJ JJ8mAn HZtai3 6d8705 AC0Kla nmMUaG kKiQtr MwF INTERFACE [facility] [address], [place], [address], 11/16/2024 09:13:47 11/17/19 25 11/16/2024 XR, hip + pelvi s, unila teral , 2 or 3 view http:/ [email or web address] ?Encry pted=s hAaTro YD8dLq bEUv6g %2BXZw aYqtaq 0bqfl% 2Fg9IQ a4ajBk vP9nXo QUaueC m3YtLR FvZlgJ JJ8mAn HZtai3 6m6057 AC0Kla nmMUaG kKiQtr MwF INTERFACE [facility] [address] [facility] [address], [place], [address], 11/16/2024 09:13:48 Result Notes Documentation Provider Name and Address Organization Details Recorded Time Xr, Hip + Pelvis, Unilateral, 2 Or 3 View : [email or web address] Encrypted=teBvUflKM5cDmoF Uv6g%7BBXpjMgnng4fkas%2Fg 3DJg1hwEpkY5iAdSFybhVs4Tk CDEaPvaLQL5nKbCHrtw65w152 6JN0FsgriRTrVsTyFshYhE Not Available [facility] 11/16/2024 09:13: 48 Xr, Hip + Pelvis, Unilateral, 2 Or 3 View : [email or web address] Encrypted=veUaOmxOS9hDyqS Uv6g%8IHRytAnmqx6ccai%2Fg 5UTn4hdBblX0hIbQUmtlJl5Ql OIQvCteBCR4dLnZJmjl08i459 7ZZ0FlfuyIUdRhDqAazYgQ Not Available [facility] 11/16/2024 09:13: 49 Medical Equipment None Reported. Allergies No known drug allergies Medications Name Sig Start Date Stop Date Status Note LastModified by Organization Details LastModified Time atorvastati n 40 mg tablet TAKE 1 TABLET BY MOUTH EVERY DAY active Not Available Not Available No t Available carvedilol 25 mg tablet TAKE 1 TABLET BY MOUTH TWICE A DAY WITH FOOD FOR 90 DAYS active Not Available Not Available No t Available trazodone 50 mg tablet TAKE 1 TABLET BY MOUTH EVERY DAY AT BEDTIME NEEDED FOR 30 DAYS 90 active Not Available Not Available No t Available meloxicam 15 mg tablet TAKE 1 TABLET BY MOUTH EVERY DAY active Not Available Not Available No t Available allopurinol 100 mg tablet TAKE 1 TABLET BY MOUTH EVERY DAY FOR 90 DAYS active Not Available Not Available No t Available tamsulosin 0.4 mg capsule TAKE 1 CAPSULE BY MOUTH EVERYDAY AT BEDTIME active Not Available Not Available No t Available amlodipine 5 mg-benazepr il 20 mg capsule TAKE 1 CAP BY MOUTH ONCE DAILY DIRECTED active Not Available Not Available No t Available metformin 1,000 mg tablet TAKE 1 TABLET BY MOUTH TWICE A DAY active Not Available Not Available No t Available metronidazo le 0.75 % topical cream APPLY TO AREAS ON FACE WITH ROSACEA TWICE DAILY NEEDED. active Not Available Not Available No t Available folic acid 1 mg tablet TAKE 1 TABLET BY MOUTH EVERY DAY active Not Available Not Available No t Available furosemide 20 mg tablet TAKE 2 TABLETS BY MOUTH DAILY active Not Available Not Available No t Available testosteron e cypionate 200 mg/mL intramuscul ar oil INJECT 1 ML INTRAMUSC ULARLY EVERY 2 WEEKS active Not Available Not Available No t Available bupropion HCl XL 300 mg 24 hr tablet, extended release TAKE 1 TABLET BY MOUTH EVERY DAY FOR 90 DAYS active Not Available Not Available No t Available oxycodone HCl-oxycodo ne-ASA four times a dayDO NOT DRIVE WHILE TAKING MEDICATIO N 08/10 completed Statu s: 'Disc ontin ued'; Not Available Not Available Not Available Eliquis 5 mg tablet TAKE 1 TABLET BY MOUTH EVERY 12 HOURS active Not Available Not Available No t Available Ozempic 1 mg/dose (4 mg/3 mL) subcutaneou s pen injector INJECT 1 MG INTO THE SKIN WEEKLY SUBCUTANE OUS 1MG ONCE WEEKLY 90 DAYS active Not Available Not Available No t Available Ozempic 2 mg/dose (8 mg/3 mL) subcutaneou s pen injector INJECT 2 MG SUBCUTANE OUSLY ONCE A WEEK DIRECTED 28 active Not Available Not Available No t Available Lagevrio 200 mg capsule (EUA) TAKE 4 CAPSULES BY MOUTH EVERY 12 HOURS FOR 5 DAYS active Not Available Not Available No t Available Zoryve 0.3 % topical foam APPLY ONCE DAILY TO FACE AND SCALP active Not Available Not Available No t Available Vitals Date Recorded Body weight Body mass index (BMI) Body height Provider Name and Address Organization Details Last Updated DateTime 11/16/2024 332179.34 g 40.1 kg/m2 182.88 cm Chandan Cuevas PA-C [address], [place], [address], [place] - [facility] 11/16/2024 09:05:49 Social History None recorded. Functional Status None recorded. Mental Status None recorded. Family History Nothing Reported. Medical History No medical history recorded. Past Encounters Encounter ID Performer Location Encounter Start Date Encounter Closed Date Diagnosis/Indication Diagnosis SNOMED-CT Code Diagnosis ICD10 Code Diagnosis IMO Codes Diagnosis [facility] [id number] [facility] [address] [place] [address] 11/16/2024 08:41:07 11/29/2024 06:46:27 Osteoarthritis of right hip joint 3920140623 75581 M16.11 5939097 Health Concerns Section Related Observation LastModified by Organization Detai ls LastModified Time None Recorded Concern Status LastModified by Organization Details LastModified Time None Recorded Advance Directives Directive None Recorded Payers Insurance Date Sequence Insurance Name Policy Number Policy Lyles Covered Member ID Lyles Member ID Guarantor Name 11/29/2024 1 [place] BC[place] ([place]) [id number] Jack Mendze [id number] Jack Mendez Notes Date Note Type Note Provider Name and Address Organization Details Recorded Time 11/16/2024 text/html I am seeing the patient today under the supervision of Dr. Reilly who was available but who did not see the patient.HPI:Patient' s a 59-year-old male that comes to the office with complaints of discomfort about the right hip. Ongoing for a couple months. He denies injury. However, he got sick about 2 weeks ago and had to significantly decrease activities. Therefore, his discomfort is subsided and now mild and at times. He has taken Tylenol and meloxicam for his discomfort. He has more discomfort over the lateral side of the hip and in the buttock region of the right hip. No pain on the left side.Past family, medical, social history and review of systems has been reviewed, updated and is located in the patient s chart.Examination:T he patient is well appearing and in no apparent distress. Alert and oriented x3. Gait is symmetric. No significant swelling, warmth, erythema the right hip. Range motion right hip is flexion to 90 with internal and external rotation to 10 and 15 respectively with some mild discomfort that emanates laterally. Range of motion of the left hip is flexion to 90 with internal and external rotation to 15 with some mild stiffness but no pain. Peripheral, vascular, lymphatic examination, skin, neurological, coordination, reflexes, sensation are within normal limits.X-rays ordered, obtained and reviewed at [facility] 2 views of the right hip reviewed demonstrate moderate arthritic change in zone 1 and zone 3. There is subchondral sclerosis. The left hip looks very similar.Impression:M oderate right hip arthritis. Asymptomatic moderate left hip arthritisPlan:I reviewed the x-rays and diagnosed with the patient. We discussed his options. We discussed conservative management. Activity modification discussed. P.r.n. NSAIDs can be used. We discussed the risks associated with NSAID use. We discussed Tylenol use. We discussed a home exercise program. We discussed injection therapies. We discussed the risks, options, benefits regards to total hip replacement surgery. We discussed the surgery itself and rehabilitation process when he fails conservative management neck trachea evaluation worsens. He wishes to hold off on cortisone injection currently. He will follow up with any increasing pain of the right hip. Chandan Cuevas PA-C [address], [place], [address], [facility] 11/16/2024 09:26:03
--- OUTSIDE RECORDS SUMMARY | 2025-05-14 19:23 | XMS_ITS | Clinical Summary ---
Author Organization [facility] Address [address] [place] [address] Phone Care Team Providers Care Wire Strander Name Role Phone Natanael Mcfarland MD Primary Care Provider [phone] Allergies Active Allergy Reactions Criticality Noted Date [...] 09/12/2017 Diabetes mellitus type 2, un complicated ([facility] V24, [facility] V28) 09/12/2017 GERD (gastroesophageal reflux disease) 8 Gout 09/12/2017 Hyperlipidemia 09/12/2017 Hypertension 09/12/2017 Nephrolithiasis 09/12/2017 DIANE (obstructive sleep apnea) 09/08/2017 Overview (09/08/2023): Overview: CPAP Polycythemia, 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 Immunizations Immunization Administration Dates Next Due [employer] SARS-CoV-2 COVID-19, mRNA, LNP-S, preservative free 09/27/2020,09/06/2020 Surgical History Surgery Date Site/Laterality Comments OTHER SURGICAL HISTORY 05/2009 Right PROCEDURE: [place] LAPAROSCOPY SURGICAL ORCHIECTOMY; COMMENT: testicular cancer BACK SURGERY 04/2001 PROCEDURE: HISTORICAL BACK SURGERY; COMMENT: C4-C5 discectomy & fusion LITHOTRIPSY 04/2000 PROCEDURE: HISTORICAL LITHOTRIPSY; COMMENT: kidney stones Medical History Medical History Date Comments Morbid obesity with BMI of 4 5.0-49.9, adult ([facility], [facility] V28) 09/08/2017 DX:Morbid obesity wit h BMI of 45.0-49.9, adult ([facility]) History of testicular cancer 09/12/2017 DX: History of testicular cancer Hypertension 09/12/2017 DX:Hypertension Hyperlipidemia 09/12/2017 DX:Hyperlipidemi a GERD (gastroesophageal reflux disease) 09/12/2017 DX:GERD (gastroesophageal reflux disease) Gout 09/12/2017 DX:Gout Diabetes mellitus type 2, un complicated ([facility] V24, [facility] V28) 09/12/2017 DX:Diabetes mellitus type 2 , uncomplicated ([facility]) Depression 09/12/2017 DX:Depression Nephrolithiasis 09/12/2017 DX:Nephrolithias [...] Care Team (Late st Contact Info) Description 05/27/2025 7:40 AM EST Office Visit [facility] [address] [place] [phone] Edelmira Valentin NP [address] [place] [address] Dr [address] [place] [phone] 09/27/2025 9:30 AM EDT Office Visit Pulmonology - [place] [address] [facility] [address] [place] [phone] Kelby Kolb MD [address] [place] [phone] 11/27/2025 9:00 AM EDT Office Visit [facility] Hematology Oncology [address] [place] [phone] Oswaldo Vargas MD [address] [place] [address] Health Maintenance Due Date Last Done Comments Colorectal Cancer Screening: Colonoscopy 1965 Diabetes: Annual GFR (Glomerular Filtration Rate) 1965 Diabetes: Annual Foot Exam 10/31/1975 Diabetes: Annual Retina Eye Exam 10/31/1975 DTaP,Tdap,and Td Vaccines (1 - Tdap) 1984 Hepatitis B Vaccines (1 of 3 - 19+ 3-dose series) 1984 Pneumococcal Vaccine: 50+ Years (1 of 2 - PCV) 1984 RSV Immunization Adult Patients (1 - Risk 50-74 years 1-dose series) 10/31/2015 Zoster Vaccines (1 of 2) 10/31/2015 Cholesterol Screening (Lipid Panel) 06/20/2022 HIV Screening 06/20/2022 Hepatitis C Screening 06/20/2022 Social Influencers of Health Screening 06/20/2022 Diabetes: Annual Urine Albumin-Creatinine Ratio (uACR) 06/29/2022 Diabetes: Blood Sugar Control Test (HGBA1C) 06/29/2022 Hypertension/CHF/CAD Annual BMP Blood Test 06/29/2022 Depression Screening 07/18/2024 COVID-19 Vaccine ( season) 2025 05/05/2022, 10/14/2021, 09/27/2020, Additional history exists Influenza Vaccine (#1) 2025 , 06/28/2023, 05/05/2022, Additional history exists HIB Vaccines Aged Out No longer eligi [...] patient's age to complete this topic [place] [id number] [facility] Care Teams Wire Strander Relationship Specialty Start Date End Date Natanael Mcfarland MD [address] [place] [address] PCP - General Internal Medicine 09/06/24
--- OUTSIDE RECORDS SUMMARY | 2025-05-14 19:23 | XMS_ITS | Clinical Summary ---
Author Organization [facility] Address [address] [place] [address] Care Team Providers Care Cigarette Paper Tester Name Role Phone Natanael Mcfarland MD Primary Care Provider [phone] Allergies Active Allergy Reactions Criticality Noted Date [...] age to complete this topic Care Teams Cigarette Paper Tester Relationship Specialty Start Date End Date Natanael Mcfarland MD PCP - General Internal Medicine 01/31/17
--- OUTSIDE RECORDS SUMMARY | 2025-05-14 19:23 | XMS_ITS | Clinical Summary ---
Author Organization [facility] Address [address] [place] [address] Care Team Providers Care Purchasing Buyer Name Role Phone Natanael Mcfarland Primary Care Provider [phone] Medications Hospital, Clinic, or Other Facility Administered [...] (1 - 1-dose 75+ series) 2040 Insurance [facility] OUT OF STATE HMO Care Teams Purchasing Buyer Relationship Specialty Start Date End Date Natanael Mcfarland PCP - General Internal Medicine 03/31/21
== END 2025-05-14 15:00 | disposition home or self-care (01) ==
LOC: HO.BBR 14:59
PROVIDERS: PCP Internal Medicine; Visit Provider Internal Medicine
DX: D75.1 Secondary polycythemia (principal)
CPT/HCPCS: 85018; 99195